=== PATIENT | female | born 1955 | race Caucasian/White ===

== ENCOUNTER → 2016-08-08 | Outpatient (CLI) | payer BC ==
[2016-08-08 15:30] LABS: BASO % 0.4 %; BASO ABS # 0.03 K/uL (0-0.2); COMPLETE YES; EOS % 1.6 %; HEMATOCRIT 42.3 % (37-47); IG% 0.1 %; LYMPH % 39.7 %; LYMPH ABS # 2.77 K/uL (1.2-3.4); MEAN CELL VOLUME 94.2 fL (80-100); MEAN CORPUSCULAR HGB CONC 32.9 g/dl (32-36); MEAN PLATELET VOLUME 10.5 fL (7.4-10.4); MONO % 7.7 %; NEUT % 50.5 %; PLATELET COUNT 258 K/uL (130-400); RED BLOOD COUNT 4.49 M/uL (4.2-5.4); WHITE BLOOD COUNT 6.98 K/uL (4.8-10.8)
[2016-08-08 15:42] LABS: ALT/SGPT 18 U/L (12-78); AST/SGOT 21 U/L (15-37); BLOOD UREA NITROGEN 11 mg/dl (7-18); BUN/CREATININE RATIO 9.6 (10-20); CALCIUM 8.3 mg/dl (8.5-10.1); CARBON DIOXIDE 26 mmol/L (21-32); CHLORIDE 104 mmol/L (98-107); GLUCOSE 107 mg/dl (70-99); SODIUM 140 mmol/L (136-145)
[2016-08-08 15:52] LABS: ALKALINE PHOSPHATASE 94 U/L (45-117); CHOLESTEROL 219 mg/dl (0-200); CHOLESTEROL/HDL RATIO 5.5; HDL CHOLESTEROL 40 mg/dl; LDL CHOLESTEROL CALCULATED 138 mg/dl; TRIGLYCERIDES 204 mg/dl (0-150); VERY LOW DENSITY LIPOPROT CALC 41 mg/dl
[2016-08-08 15:58] LABS: RATIO 5.1 mcg/mg (0-30.0)
[2016-08-09 06:06] LABS: ESTIMATED AVERAGE GLUCOSE 140 mg/dl; HA1C FLAG Normal (Normal)
== END | disposition home or self-care (01) ==
LOC: C.LAB1850 14:23
PROVIDERS: ATTEND Internal Medicine
DX: E11.9 Type 2 diabetes mellitus without complications (principal); E03.9 Hypothyroidism, unspecified; I42.9 Cardiomyopathy, unspecified; E55.9 Vitamin D deficiency, unspecified; E53.8 Deficiency of other specified B group vitamins; I65.29 Occlusion and stenosis of unspecified carotid artery

== ENCOUNTER → 2017-06-01 | Outpatient (CLI) | payer BC ==
[2017-06-01 09:49] LABS: ALT/SGPT 24 U/L (12-78); AST/SGOT 19 U/L (15-37); BLOOD UREA NITROGEN 9 mg/dl (7-18); BUN/CREATININE RATIO 9.9 (10-20); CALCIUM 8.6 mg/dl (8.5-10.1); CARBON DIOXIDE 26 mmol/L (21-32); CHLORIDE 105 mmol/L (98-107); CREATININE 0.96 mg/dl (0.60-1.20); GLUCOSE 137 mg/dl (70-99); SODIUM 135 mmol/L (136-145)
[2017-06-01 09:59] LABS: ESTIMATED AVERAGE GLUCOSE 146 mg/dl; HA1C FLAG Normal (Normal)
[2017-06-01 10:03] LABS: CHOLESTEROL 120 mg/dl (0-200); CHOLESTEROL/HDL RATIO 2.7; HDL CHOLESTEROL 44 mg/dl; LDL CHOLESTEROL CALCULATED 59 mg/dl; TRIGLYCERIDES 84 mg/dl (0-150); VERY LOW DENSITY LIPOPROT CALC 17 mg/dl
== END | disposition home or self-care (01) ==
LOC: C.LAB1850 07:08
PROVIDERS: ATTEND Internal Medicine
DX: E78.5 Hyperlipidemia, unspecified (principal); E03.9 Hypothyroidism, unspecified; E53.8 Deficiency of other specified B group vitamins; E11.9 Type 2 diabetes mellitus without complications

== ENCOUNTER 2017-09-11 18:43 | Emergency (ER) | payer BC, OTHER ==
[~2017-09-11] VITALS: Ht 160 cm; Wt 77.7 kg
[2017-09-11 18:48] VITALS: TEMP 36.8; Ht 160 cm; Wt 77.7 kg
--- NOTE | 2017-09-11 19:25 | EMERGENCY ROOM VISIT NOTE ---
History Report prepared by Gina: Héctor Ratliff Under the Supervision of: Dr. Angelito Umaña M.D. First contact with patient: 18:52 Chief Complaint: HEADACHE Stated Complaint: PAIN IN HEAD VISION,HAD BLOOD CLOT BEFORE FEELS TH History of Present Illness The patient is a 62 year old white female with a past medical history of blood clots and DM who presents to the ED with a cc of an intermittent headache beginning today. The patient states that she has been hearing "whooshing sounds in my head" in both ears. She reports the last time she experienced this was when she had a blood clot in her head. The patient states that today she experienced a headache that "felt like an electric probe shocking the right lower side of my head through the left side of my head". She states that this sensation comes and goes every couple of minutes. Positive "whooshing sound". Negative Deficits, recent falls, injury. Source of History: patient Onset: today Position: head Quality: other ("electric probe shocking") Timing: intermittent Note: Positive "whooshing sound". Negative Deficits, recent falls, injury. Review of Systems See HPI for pertinent positives and negatives. A total of ten systems were reviewed and were otherwise negative. Past Medical & Surgical Medical Problems: (1) Blood clots in brain (2) Diabetes Family History Cancer Diabetes mellitus Heart disease Hypertension Social History Smoking Status: Former Smoker Occupation Status: retired Current/Historical Medications Scheduled Aspirin (Aspirin Ec), 81 MG PO DAILY Atorvastatin (Lipitor), 10 MG PO DAILY Cyanocobalamin (Vitamin B-12), 1 TAB PO WK Fluoxetine (Prozac), 40 MG PO DAILY Levothyroxine Sodium (Synthroid), 150 MCG PO DAILY Sacubitril-Valsartan (Entresto 49-51 mg), 1 TAB PO BID Scheduled PRN [Ambein], 10 MG PO HS PRN for Sleep Allergies Coded Allergies: ALLERGY2 (Unverified Allergy, Unknown, 09/11/17) Fluvastatin (Unverified Allergy, Unknown, UNKNOWN, 09/11/17) Physical Exam Vital Signs Date Time Temp Pulse Resp B/P (MAP) Pulse Ox O2 Delivery O2 Flow Rate FiO2 09/11/17 20:45 86 16 130/64 96 Room Air 09/11/17 18:48 36.8 86 20 149/67 97 Room Air Physical Exam GENERAL: Awake, alert, well-appearing, NAD HENT: Normocephalic, atraumatic. EYES: Normal conjunctiva. Sclera non-icteric. NECK: Supple. No nuchal rigidity. FROM. RESPIRATORY: CTAB, no rhonchi, wheezing, crackles CARDIAC: RRR, no MRG ABDOMEN: Soft, NTND, BS+ MSK: No chest wall TTP, no LE edema, No bruits, No reproducible head or neck pain. NEURO: CN 2-12 intact, 5/5 upper and lower extremity strength, no dysmetria, no drift, good finger to nose, no sensory deficits. Finger count grossly normal. PERRL. SKIN: No rash or jaundice noted. Medical Decision & Procedures ER Provider Diagnostic Interpretation: Radiology results as stated below per my review and radiologist interpretation: HEAD CT NONCONTRAST CT DOSE: 927.37 mGy.cm HISTORY: prior h/o of embolic stroke, posterior occipital discomfort TECHNIQUE: Multiaxial CT images of the head were performed without the use of intravenous contrast. Automated exposure control was utilized for this study. A dose lowering technique was utilized adhering to the principles of ALARA. Comparison: Brain MRI 06/29/2014. Findings: The paranasal sinuses and mastoid air cells are clear. The calvarium and skull base are intact. The ventricles and sulci are within normal limits. There is no mass, hematoma, midline shift, or acute infarct. Impression: No acute intracranial abnormality. Electronically signed by: Dwayne Huston M.D. 09/11/2017 7:27 PM Dictated Date/Time: 09/11/2017 7:[address] DOSE: HISTORY: neck pain R sided that extends to L side of parietal area TECHNIQUE: Multiaxial CT images of the cervical spine were performed and reformatted in the sagittal and coronal plane without the use of contrast. A dose lowering technique was utilized adhering to the principles of ALARA. COMPARISON: None. FINDINGS: No fractures. No subluxation. Prevertebral soft tissues and the C1-C2 interval are intact. No pneumothorax. IMPRESSION: No fractures within the cervical spine. Electronically signed by: Dwayne Huston M.D. 09/11/2017 7:34 PM Dictated Date/Time: 09/11/2017 7:29 PM ED Course 1856: The patient was evaluated in room A04B. A complete history and physical exam was performed. 2020: I reevaluated the patient. Discussed results and discharge instructions: She verbalized understanding and agreement. The patient is ready for discharge. Medical Decision Prior records/ancillary studies reviewed. Triage Nursing notes reviewed. The patient is a 62 year old white female with a past medical history of blood clots and DM who presents to the ED with a cc of an intermittent headache beginning today. Differential diagnosis: Etiologies such as migraine headache, meningitis, sinusitis, CO exposure, ICH, SAH, infection, tumor, headache, sinus thrombosis, arterial dissection, as well as others were entertained. Prior records were reviewed. Patient was seen and evaluated the bedside. Patient did describe that she had heard some whooshing type sounds in her ears. Patient also did complain of some intermittent sharp shooting electrical type shock in the occiput which would radiate to the left parietal area. Patient denies any vision changes. Patient denies any numbness tingling or weakness. Patient does take a baby aspirin. Patient does describe that she did have a prior blood clot in the brain but has not had any focal deficits or issues since then. Patient denies any trauma. On exam the patient does not have any reproducible pain and does not describe any current pain. Patient has a nonfocal neurologic exam. Gross vision is intact. Patient did have a CT of the brain CT C-spine completed. No blood work is completed as the patient does not complain of any acute symptoms and did recently just have blood work completed. Patient CT of the brain and C-spine negative acute. I did reassess the patient and told her to try some moist heat and some Tylenol. Patient may have some radicular type discomfort. Patient was told to follow-up with her PCP for further evaluation and treatment at this time. The patient does not have any carotid bruits noted again without any focal neurologic deficits I believe the whooshing in the ears is not diagnostic of anything in particular that would require further workup at this time. Patient was given strict follow-up, discharge, and return precautions. All questions were answered. Patient was deemed suitable for outpatient follow-up at this time. Patient agreed with the plan of care and was safely discharged home. Medication Reconcilliation Current Medication List: was personally reviewed by me Blood Pressure Screening Patient's blood pressure: Elevated blood pressure Blood pressure disposition: Referred to PCP Impression Primary Impression: Headache Scribe Attestation The scribe's documentation has been prepared under my direction and personally reviewed by me in its entirety. I confirm that the note above accurately reflects all work, treatment, procedures, and medical decision making performed by me. Departure Information Dispostion Home / Self-Care Referrals Crow Casanova P.A. (PCP) Nick Murray M.D. Patient Instructions Headache Pain, My [facility] Additional Instructions Please return to the emergency department if you have worsening or recurrent symptoms not amenable to at-home treatment. Please call for a follow-up appointment with her primary care physician. Please take your medications as prescribed. If you have other concerns and/or complaints please feel free to also call your primary care physician's office or return the ED for further evaluation, management, and treatment. You may take tylenol 650 mg every 6 hours as needed for pain. Consider moist heat as well to help with her discomfort. Please make a follow-up appointment with your primary care physician. Take your medications as prescribed. You have been examined and treated today on an emergency basis only. This is not a substitute for, or an effort to provide, complete comprehensive medical care. It is impossible to recognize and treat all injuries or illnesses in a single emergency department visit. It is therefore important that you follow up closely with [facility], your PCP, and/or your specialist(s). Call as soon as possible for an appointment. Thank you for your time and consideration. I look forward to speaking with you again soon. Please don't hesitate to call us if you have any questions. Problem Qualifiers Primary Impression: Headache Headache type: unspecified Headache chronicity pattern: episodic headache Intractability: not intractable Qualified Codes: R51 - Headache
--- NOTE | 2017-09-11 19:28 | DIAGNOSTIC IMAGING REPORT ---
HEAD CT NONCONTRAST CT DOSE: 927.37 mGy.cm HISTORY: prior h/o of embolic stroke, posterior occipital discomfort TECHNIQUE: Multiaxial CT images of the head were performed without the use of intravenous contrast. Automated exposure control was utilized for this study. A dose lowering technique was utilized adhering to the principles of ALARA. Comparison: Brain MRI 06/29/2014. Findings: The paranasal sinuses and mastoid air cells are clear. The calvarium and skull base are intact. The ventricles and sulci are within normal limits. There is no mass, hematoma, midline shift, or acute infarct. Impression: No acute intracranial abnormality. Electronically signed by: Dwayne Huston M.D. 09/11/2017 7:27 PM Dictated Date/Time: 09/11/2017 7:21 PM
--- NOTE | 2017-09-11 19:35 | DIAGNOSTIC IMAGING REPORT ---
CERVICAL SPINE CT CT DOSE: HISTORY: neck pain R sided that extends to L side of parietal area TECHNIQUE: Multiaxial CT images of the cervical spine were performed and reformatted in the sagittal and coronal plane without the use of contrast. A dose lowering technique was utilized adhering to the principles of ALARA. COMPARISON: None. FINDINGS: No fractures. No subluxation. Prevertebral soft tissues and the C1-C2 interval are intact. No pneumothorax. IMPRESSION: No fractures within the cervical spine. Electronically signed by: Dwayne Huston M.D. 09/11/2017 7:34 PM Dictated Date/Time: 09/11/2017 7:29 PM
[2017-09-11] MEDS ORDERED: LEVO150T PO (19:41)
[2017-09-11] MEDS ORDERED: ATOR10TA82 PO (19:41)
[2017-09-11] MEDS ORDERED: ASPI81TA28 PO (19:41)
[2017-09-11] MEDS ORDERED: SACU1TAB7 PO (19:41)
[2017-09-11] MEDS ORDERED: FLUO20CA35 PO (19:41)
[2017-09-11] MEDS ORDERED: CYAN100T PO (19:46)
[2017-09-11] MEDS ORDERED: [UNRECOGNIZED DRUG - OTHER] PO (19:46)
[2017-09-11 20:45] VITALS: BP 130/64; PULSE 86; O2SAT 96
== END 2017-09-11 20:59 | disposition home or self-care (01) ==
LOC: C.EDB 18:46 → C.EDA 20:59
DX: R51 Headache (principal); Z86.718 Personal history of other venous thrombosis and embolism; E11.9 Type 2 diabetes mellitus without complications; Z80.9 Family history of malignant neoplasm, unspecified; Z83.3 Family history of diabetes mellitus; Z82.49 Family history of ischemic heart disease and other diseases of the circulatory system; Z87.891 Personal history of nicotine dependence; Z79.82 Long term (current) use of aspirin; Z79.899 Other long term (current) drug therapy; Z88.8 Allergy status to other drugs, medicaments and biological substances

== ENCOUNTER 2019-08-14 05:03 | Inpatient (IN) ==
--- NOTE | 2019-08-12 11:56 | Anesthesiology Consultation ---
Date of Service August 12, 2019 Assessment & Plan (1) Encounter for pre-operative examination: CHECK BSG AM DOS Cardiology 07/24/19: "Patient remains stable from a cardiac standpoint. She is able to perform her usual activities daily living without limiting cardiop ulmonary symptoms otherwise." [negative stress echo 06/17/19] Cardiology aware of upcoming CEA (Kip Edilberto placed referral to [facility]). Case discussed with Dr. Barros. OK to proceed, but will require discussion with patient AM DOS regarding her increased risk given she has refused AICD placement with EF of 25% Chart Review Chart Review: Acceptable Risk for Surgery and Patient NOT seen in Pre Admission Testing History Surgery Operation Date: 08/14/19 07:00 Proposed Procedures p Right Carotid Endarterectomy with Patch Angioplasty - Vance Walter MD Height/Weight Height: 5 ft 4 in Weight: 77.111 kg Allergies Allergy/AdvReac Type Severity Reaction Status Date / Time surgical ritu Allergy Unknown Uncoded 08/12/19 09:02 Medications Home Medications Medication Instructions Recorded Confirmed Last Taken blood sugar diagnostic #100 ea 03/26/19 08/04/19 Unknown blood-glucose meter #1 ea 03/26/19 08/04/19 Unknown metformin 500 mg tablet 500 mg PO QAM tab 05/29/19 08/12/19 Unknown aspirin 325 mg tablet 325 mg PO QAM 07/30/19 08/12/19 Unknown atorvastatin 10 mg PO QAM 08/12/19 08/12/19 Unknown fluoxetine 60 mg PO PM 08/12/19 08/12/19 Unknown levothyroxine 137 mcg PO QAM 08/12/19 08/12/19 Unknown sacubitril-valsartan [Entresto] 1 tab PO BID 08/12/19 08/12/19 Unknown zolpidem [Ambien] 10 mg PO HS 08/12/19 08/12/19 Unknown Past Medical History Medical History Anxiety Carotid artery stenosis CVA (cerebral vascular accident) (Resolved) vs TIA 04/17/2019 - [facility] - poor historian - reports physician wanted to put her on Plavix but she refused. Depression Diabetes mellitus, type 2 NIDDM History of anesthesia reaction "I coded during my tubal ligation." 30+ years ago - says she is very sensistive to anesthesia, she was told to tell anesthesia that she doesn't need much Hypoglycemia "I drop into the 40s-50s every day" - says she keeps glucose tablets on her at all times. - instructed pt to notify PCP as she is on metformin Non-ischemic cardiomyopathy EF 25% on stress echo 06/17/19. Has chronically refused AICD placement Poor historian Sleep apnea s/p gastric bypass, no longer using CPAP since wt loss TIA (transient ischemic attack) 20 years ago Past Family History Family History Brother Alcoholism Mother Diabetes Father Prostate cancer Sister Breast cancer Slow to wake up after anesthesia Past Surgical History Surgical History History of cardiac cath 10 years ago - CP - [facility] - no stents 15 years ago - [facility] - no stents History of cholecystectomy History of esophagogastroduodenoscopy (EGD) History of tooth extraction History of tubal ligation S/P gastric bypass Past Anesthesia History "I coded during my tubal ligation." 30+ years ago - says she is very sensitive to anesthesia, she was told to tell anesthesia that she doesn't need much. No anesthesia records available, no records at [facility]. Social History Smoking Status: Former smoker tobacco type: cigarettes Do You Dip or Chew Tobacco: No Smoking End Date: 30 years ago Hx Alcohol Use: No Hx Substance Use: No Testing Laboratory Results 08/04/19 WBC: 6.22 H/H: 12.7/39.7 PLATELETS: 257 SODIUM: 140 POTASSIUM: 4.4 CHLORIDE: 109 CO2: 28 BUN: 13 CREATININE: 0.97 GLUCOSE: 103 Electrocardiogram Date: 04/19/19 Findings: + NSR @ (78bpm) Left anterior fascicular block. Low voltage in precordial leads. Abnormal R wave progression, early transition. Prolonged QT interval. Baseline wander in lead V5. Chest X-Ray Date: 04/18/19 Findings: + NAD Echocardiogram Date: 04/19/19 EF: 25-30% Moderately dilated LV with segmental abnormalities as described above and severely decreased systolic function. Normal RV size and function. Mild mitral regurgitation. Sinotubular junction measures 2.1 cm. There is an impaired relaxation pattern consistent with diastolic dysfunction grade 1. Stress Test Date: 06/17/19 Type: exercise Resting EF: 25% Negative exercise stress echocardiogram for ischemia at 94% MPHR. Resting echocardiogram with severe LV systolic dysfunction. Moderate LV dilatation. Mild left atrial dilatation. Mild mitral regurgitation. Trace to mild tricuspid regurgitation. Normal estimated RVSP. Compared to a resting echocardiogram of 02/12/2018, there has been no significant interval change in the resting LV systolic function.
[2019-08-14] MEDS ORDERED: LR 15ML/HR IV SCH (06:00)
--- NOTE | 2019-08-14 06:13 | History & Physical Bridge Note ---
Date of Service August 14, 2019 History & Physical Bridge Note I have examined the patient, reviewed the History & Physical and in the interval since the performance of the History & Physical I have noted the following changes of clinical significance: no changes noted pt marked all questions answered family to be here later we are starting at carola 8 am today because of monthly QI meeting scheduled for 6:30 am
[2019-08-14] MEDS ORDERED: LIDOCAINE HCL 2% 2 ML VIAL/AMP(20MG/ML) INFIL ONE (06:39)
[2019-08-14] MEDS ORDERED: ONDANSETRON INJ 2 MG/ML 2 ML VIAL ONE (06:39)
[2019-08-14] MEDS ORDERED: PROPOFOL IV EMULSION 10 MG/ML 20 ML VIAL IV ONE (06:39)
[2019-08-14] MEDS ORDERED: fentaNYL citrate 100 MCG/2 ML VIAL ONE ×2 (06:40→07:19)
[2019-08-14] MEDS ORDERED: MIDAZOLAM HCL 1 MG/ML 2ML VIAL ONE ×2 (06:40→07:25)
[2019-08-14] MEDS ORDERED: LIDOCAINE/EPINEPHRINE 1% 20 ML VIAL ONE (06:43)
[2019-08-14] MEDS ORDERED: BACITRACIN INJ 50,000 UNIT VIAL ONE (06:43)
[2019-08-14] MEDS ORDERED: HEPARIN (PORCINE) 1000 UNIT/ML 10 ML (CATH LAB USE ONLY) ONE (06:43)
[2019-08-14] MEDS ORDERED: NITROGLYCERIN 5 MG/ML 10 ML VIAL ONE (07:12)
[2019-08-14] MEDS ORDERED: ePHEDrine sulfate 50 MG/ML AMP IV PRN (07:56)
[2019-08-14] MEDS ORDERED: fentaNYL citrate 100 MCG/2 ML VIAL IV PRN (07:56)
[2019-08-14] MEDS ORDERED: PROMETHAZINE HCL 12.5 MG in SODIUM CHLORIDE 0.9% 50 ML IV PRN (07:56)
[2019-08-14] MEDS ORDERED: HYDROmorphone INJ 2 MG/ML SYR/VIAL IV PRN (07:56)
[2019-08-14] MEDS ORDERED: ATROPINE SULFATE 0.1 MG/ML 10ML SYR IV PRN (07:56)
[2019-08-14] MEDS ORDERED: ONDANSETRON INJ 2 MG/ML 2 ML VIAL IV PRN ×2 (07:56→11:40)
[2019-08-14] MEDS ORDERED: ETOMIDATE 2 MG/ML 20 ML VIAL IV ONE (08:37)
[2019-08-14] MEDS ORDERED: PHENYLEPHRINE HCL 10 MG/ML VIAL ONE (08:37)
[2019-08-14] MEDS ORDERED: CEFAZOLIN 250 MG/ML 1 GM VIAL ONE (08:42)
[2019-08-14] MEDS ORDERED: NEOSTIGMINE METHYLSULFATE 5 MG/5 ML SYR ONE (09:20)
[2019-08-14] MEDS ORDERED: GLYCOPYRROLATE 0.2 MG/ML VIAL ONE (09:20)
[2019-08-14] MEDS ORDERED: SURGICEL ABSORB HEMOSTAT 2IN X 14IN TOP ONE (09:52)
[2019-08-14] MEDS ORDERED: CEFAZOLIN 2000MG 2,000 MG/15 ML SYR IV ONE (09:55)
--- NOTE | 2019-08-14 10:13 | Post Operative Brief Note ---
PG Immediate Post Op with CF Date of Surgery August 14, 2019 Pre & Post Diagnosis Operation Date: 08/14/19 08:00 Pre-Op Diagnosis: Right Carotid Stenosis Post-Op Diagnosis: Right Carotid Stenosis I identified the patient and participated in the time-out.: Yes Procedure Operation Date: 08/14/19 08:00 Actual Procedures p Right Carotid Endarterectomy with Bovine Patch Angioplasty(Right) - Vance Walter MD Surgeon Vance Walter MD Dust Box Worker B PIEDAD COULTER Estimated Blood Loss 50 Findings Consistent with Post-Op Diagnosis Specimens Specimen Description: Permanent Specimen A: Right Internal Jugular Node
--- NOTE | 2019-08-14 10:36 | Operative Report ---
PG Post Operative Report Pre & Post Diagnosis Operation Date: 08/14/19 08:00 Pre-Op Diagnosis: Right Carotid Stenosis Post-Op Diagnosis: Right Carotid Stenosis I identified the patient and participated in the time-out.: Yes Procedure Operation Date: 08/14/19 08:00 Actual Procedures p Right Carotid Endarterectomy with Bovine Patch Angioplasty(Right) - Vance Walter MD The patient was brought into the operating room theater general trach anesthesia supine position roll placed between her shoulder blades neck and upper chest on the right was prepped Betadine solution and scrub and properly draped systemic antibiotics given a timeout was had patient was identified 1% Xylocaine with epi was used to infiltrate anterior to the sternocleidal muscle on the right and incision was made approximately 3 inches long deepened through subcutaneous tissue dissection was carried out by retracting sternocleido laterally and went onto the neurovascular bundle the facial vein was identified divided and doubly ligated took our dissection up towards the distal aspect of the incision for incision mandible we identified a lymph node anterior jugular vein there was in the way of our dissection and we removed that ligating circumferentially around with 2-0 silk our attention was turned we identified the common carotid dissected free took her dissection to identify the superior thyroid which was Emmanuel with 2-0 silk the internal carotid flap was dissected out to we are able to identify the hypoglossal nerve and actually we dissected that placed through vessel loop along with the Ansong. A few small veins around the area with meticulous divided and ligated. Once we had vessel loop around the common and the external carotid with these were loosely held in place we divided the suspensory ligament doubly ligated with 2-0 silk prior to that we looked local anesthetic to infiltrate the carotid bifurcation patient for carotid body the internal carotid was taken up to a point that we felt were free of any disease we then placed a vessel loop around the area. Once we had felt that we had enough mobilization at this point we gave 8000 units of heparin waited approximately 5 minutes meantime a piece of bovine patch was brought up on the field cut it appropriately we will use it as a patch after 5 minutes we clamped the internal carotid first with a bulldog clamp then the external and the common arteriotomy was made in the common carotid taken out towards the internal carotid area which was significant disease could not find the lumen with the Eckert scissors but we were able to divided and went up into the distal aspect of the plaque were tapered off without very nicely we started her line of endarterectomy on the circular fibers in the common carotid to get up is 305 0 silk suture stay sutures and went on and did an internal endarterectomy inversion endarterectomy of the external carotid then continued up to the internal carotid where the plaque appeared to be tapered nicely. We released the bulldog clamp the patient had very good backbleeding. We meticulous dissected out the endarterectomy site freeing up of any debris especially towards the internal carotid area where the patch was adherent after we freed up a few small fibers. We flushed the common carotid and external. Patch was then brought up in the field and used 6-0 Prolene to put with the plaster is starting at the toe with a parachute method. Prior to closing the patch down we placed a #3 bakes dilator onto the internal carotid area with excellent backbleeding the LV on the patch we held back bleeding controlled with Kiley forceps then we flushed the external and common suctioned out the endarterectomy site and then tied down the patch. The external carotid clamp was taken off first there was a small bleeder appreciated near the takeoff of the internal/external carotid which were oversewn with 6-0 Prolene the rest appear to be satisfactory we then released the common carotid clamp and flow was reestablished to the operative field very little bleeding appreciated at last we took the DeBakey off the internal carotid. A pack was placed in the area with good seal and no thrill beyond the toe of the graft therefore at this point we then used a to reverse the heparin with 40 mg of protamine after ligating approximately 5 minutes there was virtually no bleeding in the operative field and on the patch site. I did place a piece of Surgicel just momentarily but there was obviously no bleeding. At this point a small opening was made between the 2 heads it is sternocleidal from the skin incision and I placed 1/4 inch Natalio down along the operative field touches skin edge with 2-0 silk suture the wound was closed multiple layer using 3-0 and 2-0 Vicryl approximating some tissue on top of the carotid and top of the drain and a platysma we then used 4-0 Monocryl to approximate the skin edges since the patient has some sensitivity and issues with ritu dressing was applied neurologically the patient was completely intact at the end of procedure she was extubated without any issues. AddendAlejandra coulter present throughout the procedure and help with retraction exposure and closure Surgeon Vance Walter MD Product Test Specialist B PIEDAD COULTER Estimated Blood Loss 50 Findings Consistent with Post-Op Diagnosis Specimens plaque and lymph node Description of Procedure merda I attest to the content of the Intraoperative Record and any orders documented therein. Any exceptions are noted below.
--- NOTE | 2019-08-14 11:01 | Anesthesiology Progress Note ---
Date of Service August 14, 2019 Anesthesia Post Procedure Vital Signs Vital Signs: Temp Pulse Pulse Resp BP BP Pulse Ox 08/14/19 10:55 36.6 C 81 16 132/59 L 99 08/14/19 10:45 75 16 134/61 99 08/14/19 10:35 74 16 153/62 H 100 08/14/19 10:25 76 16 159/63 H 100 08/14/19 10:19 36.2 C L 78 16 136/79 100 08/14/19 05:46 36.7 C 90 20 139/78 98 Transfer of Care Handoff Completed per policy Notes Mental Status: alert / awake / arousable and participated in evaluation Patient Amnestic to Procedure: Yes Nausea / Vomiting: adequately controlled Pain: adequately controlled Airway Patency, RR, SpO2: stable & adequate BP & HR: stable & adequate Hydration State: stable & adequate Anesthetic Complications: no major complications apparent and Pt Satisfied with anesthetic care
[2019-08-14] MEDS ORDERED: DEXTROSE 50% 50 ML SYRINGE IV PRN (11:40)
[2019-08-14] MEDS ORDERED: CARBOHYDRATES FOR HYPOGLYCEMIA PO PRN (11:40)
[2019-08-14] MEDS ORDERED: GLUCOSE 40% GEL 15 GM TUBE PO PRN (11:40)
[2019-08-14] MEDS ORDERED: GLUCOSE 10 TABS/TUBE PO PRN (11:40)
[2019-08-14] MEDS ORDERED: GLUCAGON FOR INJ 1 MG VIAL SQ PRN (11:40)
[2019-08-14] MEDS ORDERED: MoRPHine SULFATE 4 MG/ML 1 ML CARP\\VIAL IV PRN (11:40)
[2019-08-14] MEDS: OXYCODONE/ACETAMINOPHEN 5mg/325mg TAB PO PRN ×2 (12:05→16:05)
[2019-08-14] MEDS: SODIUM CHLORIDE 0.9% 1000ML 1,000 ML IV SCH (12:05)
--- NOTE | 2019-08-14 12:18 | Critical Care Consultation ---
Date of Consultation August 14, 2019 Assessment & Plan (1) Encounter for pre-operative examination: Impression: 64-year-old female status post carotid endarterectomy. Recommendations: 1. Status post right carotid endarterectomy: Management per general/vascular surgery. 2. Hypertension: Defer blood pressure goals to vascular/general surgery. 3. History of cardiomyopathy: Echo from 2018 showed an ejection fraction of 20 to 25% with global hypokinesis and grade 1 diastolic dysfunction. Moderate left ear with trivial AI was noted. She appears euvolemic currently. Would follow clinically at this point time. Continue outpatient medications. 4. Hypothyroidism: Continue outpatient medications 5. Hyperlipidemia: Continue lipid-lowering therapy 7. Depression: Continue outpatient antidepressants Additional critical care issues been well addressed by the surgical service p ostoperatively. We are available to assist with management of this patient as needed. (2) Arteriosclerosis of carotid artery: (3) Carotid artery stenosis: History of Present Illness Attending Physician: Vance Walter MD History of Present Illness Asked by Dr. Walter to assist in critical care management with this patient status post carotid endarterectomy. Patient seen and examined. EMR reviewed. Patient is a 64-year-old female found to have an asymptomatic 75% stenosis of the right carotid artery. She was seen in consultation felt to be a good candidate for carotid endarterectomy. She was taken to the OR today where the above surgery was performed. She is brought back to the ICU extubated and hemodynamically stable. She is complaining of some slight neck pain but overall feels well. No neurological symptoms. Allergies Allergy/AdvReac Type Severity Reaction Status Date / Time surgical ritu Allergy Unknown Uncoded 08/14/19 05:43 Home Medications Home Medications Medication Instructions Recorded Confirmed Type blood sugar diagnostic #100 ea 03/26/19 08/04/19 Rx blood-glucose meter #1 ea 03/26/19 08/04/19 Rx metformin 500 mg tablet 500 mg PO QAM tab 05/29/19 08/14/19 History aspirin 325 mg tablet 325 mg PO QAM 07/30/19 08/14/19 History atorvastatin 10 mg PO QAM 08/12/19 08/14/19 History fluoxetine 60 mg PO PM 08/12/19 08/14/19 History levothyroxine 137 mcg PO QAM 08/12/19 08/14/19 History sacubitril-valsartan [Entresto] 1 tab PO BID 08/12/19 08/14/19 History zolpidem [Ambien] 10 mg PO HS 08/12/19 08/14/19 History oxycodone-acetaminophen [Percocet] 1 - 2 tab PO .q4-6h PRN #15 tab 08/14/19 Rx Patient History Medical History Anxiety Carotid artery stenosis CVA (cerebral vascular accident) (Resolved) vs TIA 04/17/2019 - Chanell Kirkland - poor historian - reports physician wanted to put her on Plavix but she refused. Depression Diabetes mellitus, type 2 NIDDM History of anesthesia reaction "I coded during my tubal ligation." 30+ years ago - says she is very sensistive to anesthesia, she was told to tell anesthesia that she doesn't need much Hypoglycemia "I drop into the 40s-50s every day" - says she keeps glucose tablets on her at all times. - instructed pt to notify PCP as she is on metformin Non-ischemic cardiomyopathy EF 25% on stress echo 06/17/19. Has chronically refused AICD placement Poor historian Sleep apnea s/p gastric bypass, no longer using CPAP since wt loss TIA (transient ischemic attack) 20 years ago Surgical History History of cardiac cath 10 years ago - CP - [facility] - no stents 15 years ago - [facility] - no stents History of cholecystectomy History of esophagogastroduodenoscopy (EGD) History of tooth extraction History of tubal ligation S/P gastric bypass Family History Brother Alcoholism Mother Diabetes Father Prostate cancer Sister Breast cancer Slow to wake up after anesthesia Social History Preferred Language: Bhutanese Communication Ability: Effective Visual Impairment: No Limitations Hearing Ability: Normal Pony Edger Required: No Beliefs That Will Affect Care: None marital status: Current Living Situation: Spouse current occupational status: employed 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 Other Information That Helps Us Care for You: No Feels Safe at Home: Yes Safety Concerns: Feels Safe At This Time Smoking Status: Former smoker Tobacco Type: cigarettes ; Do You Dip or Chew Tobacco: No ; Smoking End Date: 30 years ago ; Number of Years Since Quit: 18 ; Second Hand Exposure: Yes (previous exposure in the workplace) ; Tobacco Cessation Education Requested by Patient: No Hx Alcohol Use: No Hx Substance Use: No Review of Systems Review of Systems: See HPI no changes Physical Exam Constitutional: WD/WN, vitals as above Neck: trachea midline, no thyromegaly Respiratory: normal respiratory effort, lungs clear to auscultation Cardiovascular: RRR, no murmur, no edema Gastrointestinal (Abdomen): normal bowel sounds, soft, nontender, no hepatosplenomegaly Musculoskeletal: Extremities: extremities normal to inspection Skin: no rashes, warm and dry Neurologic: Nonfocal exam Lymphatic: no cervical lymphadenopathy Results & Data ([facility]) Vital Signs (Past 12 Hours) Vital Signs Temp Pulse Pulse Resp BP BP Pulse Ox 08/14/19 11:40 36.7 C 78 18 140/62 143/74 H 96 08/14/19 11:05 36.6 C 81 16 134/58 L 99 08/14/19 10:55 36.6 C 81 16 132/59 L 99 08/14/19 10:45 75 16 134/61 99 08/14/19 10:35 74 16 153/62 H 100 08/14/19 10:25 76 16 159/63 H 100 08/14/19 10:19 36.2 C L 78 16 136/79 100 08/14/19 05:46 36.7 C 90 20 139/78 98 Diagnostic Findings No current imaging Coding Level of Care Code 73590 Inpt Consult Level 3 Diagnoses Encounter for pre-operative examination Z01.818 Arteriosclerosis of carotid artery I65.29 Carotid artery stenosis I65.29
[2019-08-14] MEDS: INSULIN ASPART 100 UNITS/ML 3 ML PEN SC SCH ×3 (12:47→20:51)
--- NOTE | 2019-08-14 13:09 | Anesthesiology Progress Note ---
Date of Service August 14, 2019 Subjective pt was recieved in ICU where she immediately started to complain of left eye pain. A foreign body sensation. Pt eyes were taped securely during procedure and no complaints in PACU. On physical inspection, pt having difficult keeping eye open. Pt able to move eye in all directions. Some redness on lateral side. Pt has tried artificial tears without effect. Given the recent surgery, a corneal abrasion during the post operative period has to be considered. Generally, will heal on their own. Given that she is in a hospital and in pain, i will place ketoralac eye drops and abx eye drops in for three days. Will reevaluate tomorrow. Physical Exam Vital Signs: Last Vital Signs Temp 36.7 C 08/14/19 11:40 Pulse 78 08/14/19 11:40 Resp 18 08/14/19 11:40 BP 143/74 H 08/14/19 11:40 Pulse Ox 96 08/14/19 11:40 Results & Data Medications Administered Sodium Chloride (Nss 1000ml) 1,000 mls @ 80 mls/hr IV .[id number] [facility] Stop: 09/13/19 11:39 Last Admin: 08/14/19 12:05 Dose: 80 mls/hr Documented by: [id number] Oxycodone/Acetaminophen (Percocet 5mg/325mg) 1 - 2 tab PO Q4H PRN PRN Reason: Moderate Pain Stop: 08/28/19 11:39 Last Admin: 08/14/19 12:05 Dose: 1 tab Documented by: [id number]
[2019-08-14] MEDS: TRIMETHOPRIM/POLYMYXIN B OP SCH ×2 (13:42→16:06)
[2019-08-14] MEDS: NITROGLYCERIN/D5W 100MCG/ML 250 ML IV SCH (14:42)
[2019-08-14] MEDS: KETOROLAC 0.5% OP SOLN 5 ML BTL OP SCH ×2 (18:03→20:51)
[2019-08-14] MEDS: SACUBITRIL-VALSARTAN 49/51 MG TAB PO SCH (20:50)
[2019-08-14] MEDS ORDERED: FLUOXETINE HCL 20 MG CAP PO SCH (21:00)
[2019-08-14] MEDS ORDERED: ZOLPIDEM TARTRATE 10 MG TAB PO SCH (21:00)
[2019-08-14] MEDS ORDERED: KETOROLAC LS 0.4% OP SOLN 5 ML BTL OP SCH (21:00)
[2019-08-14] MEDS: ACETAMINOPHEN 500 MG TAB PO PRN (21:14)
[2019-08-15] MEDS: SODIUM CHLORIDE 0.9% 1000ML 1,000 ML IV SCH (00:16)
[2019-08-15] MEDS: OXYCODONE/ACETAMINOPHEN 5mg/325mg TAB PO PRN ×3 (02:50→15:22)
[2019-08-15] MEDS: ACETAMINOPHEN 500 MG TAB PO PRN (03:34)
[2019-08-15 04:38] LABS: Basophils # (auto) 0.01 K/uL (0-0.2); Basophils % (auto) 0.2 %; Eosinophils # (auto) 0.12 K/uL (0-0.5); Eosinophils % (auto) 2.4 %; Hematocrit (blood only) 33.5 % (37-47); Hemoglobin 10.9 g/dL (12.0-16.0); Lymphocytes # (auto) 1.43 K/uL (1.2-3.4); Lymphocytes % (auto) 28.9 %; Mean Corpuscular Hgb Conc 32.5 g/dL (32-36); Mean Corpuscular Volume 95.2 fL (80-100); Mean Platelet Volume 9.5 fL (7.4-10.4); Monocytes # (auto) 0.56 K/uL (0.11-0.59); Monocytes % (auto) 11.3 %; Neutrophils # (auto) 2.83 K/uL (1.4-6.5); Neutrophils % (auto) 57.2 %; Platelet Count 174 K/uL (130-400); RDW Coefficient of Variation 13.4 % (11.5-14.5); RDW Standard Deviation 46.4 fL (36.4-46.3); Red Blood Count 3.52 M/uL (4.2-5.4); White Blood Count 4.95 K/uL (4.8-10.8)
[2019-08-15 04:58] LABS: BUN Creatinine Ratio 12.3 (10-20); Calcium 7.9 mg/dl (8.5-10.1); Creatinine Clr Calc Pharmacy 72.2 ml/min; Est GFR (African American) 91.8; Est GFR (Non-African American) 79.2; Magnesium 1.9 mg/dl (1.8-2.4); Phosphorus 4.1 mg/dl (2.5-4.9); Potassium 3.7 mmol/L (3.5-5.1)
[2019-08-15] MEDS ORDERED: LEVOTHYROXINE SODIUM 137 MCG TABLET PO SCH (06:30)
--- NOTE | 2019-08-15 06:37 | Surgery Progress Note ---
Date of Service August 15, 2019 Assessment & Plan (1) Carotid artery stenosis: Will DC IV fluids DC the arterial line increase her diet slowly reevaluate later today and possibly discharge Told the patient that the neck discomfort was due to the position in the OR with a roll placed underneath her shoulders and should resolve Instructed her to resume all her preoperative medicines As I told her preoperatively no driving for 1 week no lifting anything heavier than 10 pounds she can shower I will see back in the office in 1 week PRN Present on Admission?: Yes Subjective Feels fine no issues voiding fine last evening only complaint is to states her back of her neck hurts Physical Exam Physical Exam: Alert coherent no distress neurologically intact Incision is free of any ecchymosis or any drainage or hematoma minimal drainage through the Natalio site (Natalio was removed) Tongue midline neurologically intact Results & Data Vital Signs (Past 12 Hours) Vital Signs Temp Pulse Resp BP BP Pulse Ox 08/15/19 06:00 65 18 116/41 L 92 08/15/19 04:00 37 C 75 17 101/49 L 120/56 L 94 08/15/19 02:00 75 20 121/44 L 117/53 L 94 08/15/19 00:00 36.8 C 69 18 110/41 L 115/51 L 93 08/14/19 22:00 63 17 118/52 L 92 08/14/19 20:00 36.8 C 64 18 124/44 L 111/64 96 PG Care Time/CCT Total # of Minutes Spent Total Time Spent with Patient: Total time spent is greater than 50% in coordination of care (as documented) at patient's floor/unit and/or counseling patient: Coding Level of Care Code None Diagnoses Carotid artery stenosis I65.29
--- NOTE | 2019-08-15 07:11 | Critical Care Progress Note ---
Date of Service August 15, 2019 Assessment & Plan Admission and Anticipated Discharge Date Admission Date: August 14, 2019 Results & Data ([facility]) Vital Signs (Past 12 Hours) Vital Signs Temp Pulse Resp BP BP Pulse Ox 08/15/19 06:00 65 18 116/41 L 92 08/15/19 04:00 37 C 75 17 101/49 L 120/56 L 94 08/15/19 02:00 75 20 121/44 L 117/53 L 94 08/15/19 00:00 36.8 C 69 18 110/41 L 115/51 L 93 08/14/19 22:00 63 17 118/52 L 92 08/14/19 20:00 36.8 C 64 18 124/44 L 111/64 96 Resident Activity Tracking Resident Involvement: Resident Care Provided Care Provided: Adult Hospital Medicine
--- NOTE | 2019-08-15 07:53 | Anesthesiology Progress Note ---
Date of Service August 15, 2019 Anesthesia Post Procedure Vital Signs Vital Signs: Temp Pulse Pulse Resp BP BP BP 08/15/19 06:00 65 18 116/41 L 08/15/19 04:00 37 C 75 17 101/49 L 120/56 L 08/15/19 02:00 75 20 121/44 L 117/53 L 08/15/19 00:00 36.8 C 69 18 110/41 L 115/51 L 08/14/19 22:00 63 17 118/52 L 08/14/19 20:00 36.8 C 64 18 124/44 L 111/64 08/14/19 18:01 91 H 19 144/79 H 08/14/19 18:00 90 17 08/14/19 17:31 102 H 18 148/60 H 08/14/19 17:01 77 20 126/60 08/14/19 16:02 80 18 08/14/19 16:01 81 18 125/70 08/14/19 16:00 88 12 08/14/19 15:31 75 16 122/58 L 08/14/19 15:01 71 14 128/56 L 08/14/19 14:48 36.8 C 08/14/19 14:33 73 13 08/14/19 14:32 74 17 110/50 L 08/14/19 14:01 70 12 124/52 L 08/14/19 11:40 36.7 C 78 18 140/62 143/74 H 08/14/19 11:05 36.6 C 81 16 134/58 L 08/14/19 10:55 36.6 C 81 16 132/59 L 08/14/19 10:45 75 16 134/61 08/14/19 10:35 74 16 153/62 H 08/14/19 10:25 76 16 159/63 H 08/14/19 10:19 36.2 C L 78 16 136/79 Pulse Ox 08/15/19 06:00 92 08/15/19 04:00 94 08/15/19 02:00 94 08/15/19 00:00 93 08/14/19 22:00 92 08/14/19 20:00 96 08/14/19 18:01 96 08/14/19 18:00 96 08/14/19 17:31 94 08/14/19 17:01 93 08/14/19 16:02 96 08/14/19 16:01 95 08/14/19 16:00 96 08/14/19 15:31 95 08/14/19 15:01 95 08/14/19 14:48 08/14/19 14:33 96 08/14/19 14:32 96 08/14/19 14:01 95 08/14/19 11:40 96 08/14/19 11:05 99 08/14/19 10:55 99 08/14/19 10:45 99 08/14/19 10:35 100 08/14/19 10:25 100 08/14/19 10:19 100 Pain Intensity Right Neck: Pain Intensity: 6 Notes Mental Status: alert / awake / arousable and participated in evaluation Nausea / Vomiting: adequately controlled Pain: adequately controlled Airway Patency, RR, SpO2: stable & adequate BP & HR: stable & adequate Hydration State: stable & adequate Anesthetic Complications: no major complications apparent and Pt Satisfied with anesthetic care
--- NOTE | 2019-08-15 08:18 | Critical Care Progress Note ---
Date of Service August 15, 2019 Assessment & Plan (1) Encounter for pre-operative examination: Impression: 64-year-old female status post carotid endarterectomy. Recommendations: 1. Status post right carotid endarterectomy: Management per general/vascular surgery. 2. Hypertension: Defer blood pressure goals to vascular/general surgery. 3. History of cardiomyopathy: Echo from 2018 showed an ejection fraction of 20 to 25% with global hypokinesis and grade 1 diastolic dysfunction. Moderate LVH with trivial AI was noted. She appears euvolemic currently. Would follow clinically at this point time. Continue outpatient medications. 4. Hypothyroidism: Continue outpatient medications 5. Hyperlipidemia: Continue lipid-lowering therapy 7. Depression: Continue outpatient antidepressants Will sign off when patient leaves ICU. Please contact us if we can be of additional assistance. (2) Arteriosclerosis of carotid artery: (3) Carotid artery stenosis: Subjective Patient seen and examined. No issues overnight. No neurological symptoms. Slight pain at the surgical site but overall doing well. Tolerating a diet. Review of Systems Review of Systems: All systems reviewed & are unremarkable except as noted in HPI & below Physical Exam Constitutional: WD/WN, vitals as above Neck: trachea midline, no thyromegaly Respiratory: normal respiratory effort, lungs clear to auscultation Cardiovascular: RRR, no murmur, no edema Gastrointestinal (Abdomen): normal bowel sounds, soft, nontender, no hepatosplenomegaly Musculoskeletal: Extremities: extremities normal to inspection Skin: no rashes, warm and dry Neurologic: Nonfocal exam Lymphatic: no cervical lymphadenopathy Results & Data ([facility]) Vital Signs (Past 12 Hours) Vital Signs Temp Pulse Resp BP BP Pulse Ox 08/15/19 06:00 65 18 116/41 L 92 08/15/19 04:00 37 C 75 17 101/49 L 120/56 L 94 08/15/19 02:00 75 20 121/44 L 117/53 L 94 08/15/19 00:00 36.8 C 69 18 110/41 L 115/51 L 93 08/14/19 22:00 63 17 118/52 L 92 Coding Level of Care Code 98210 Subseq Hosp Care Lvl 2 Diagnoses Encounter for pre-operative examination Z01.818 Arteriosclerosis of carotid artery I65.29 Carotid artery stenosis I65.29
[2019-08-15] MEDS ORDERED: ATORVASTATIN 10 MG TAB PO SCH (09:00)
[2019-08-15] MEDS ORDERED: ASPIRIN 325 MG ECTAB PO SCH (09:00)
[2019-08-15] MEDS: INSULIN ASPART 100 UNITS/ML 3 ML PEN SC SCH ×2 (09:03→12:06)
[2019-08-15] MEDS: SACUBITRIL-VALSARTAN 49/51 MG TAB PO SCH (10:10)
[2019-08-15] MEDS: KETOROLAC 0.5% OP SOLN 5 ML BTL OP SCH ×2 (10:11→14:30)
[2019-08-15] MEDS: TRIMETHOPRIM/POLYMYXIN B OP SCH ×4 (10:11→15:23)
[2019-08-15] MEDS: TRAMADOL HCL 50 MG TABLET PO PRN ×2 (10:29→14:20)
[2019-08-15] MEDS: NITROGLYCERIN/D5W 100MCG/ML 250 ML IV SCH (11:44)
--- NOTE | 2019-08-15 15:20 | Discharge Summary ---
Date of Service August 15, 2019 Principal Diagnosis Right carotid stenosis Discharge Exam Neck incision clean & dry, no neurological deficits Discharge Data Allergies Allergy/AdvReac Type Severity Reaction Status Date / Time surgical ritu Allergy Unknown Uncoded 08/14/19 05:43 Consultations 08/14/19 11:40 Consult Manager Talent Acquisition Routine Procedures Performed Operation Date: 08/14/19 08:00 Actual Procedures p Right Carotid Endarterectomy with Bovine Patch Angioplasty(Right) - Vance Walter MD Hospital Course (1) Carotid artery stenosis: 64 y/o female with high-grade stenosis of right internal carotid artery was taken to the operating room for endarterectomy. The procedure was well- tolerated, she was transferred to ICU for overnight monitoring. Her BP remained stable. Blood sugars were covered with SSI. She complained of headache and nausea in the morning. These symptoms had resolved later in the day. She was tolerating diet and oral analgesics. She was stable for discharge home in the afternoon. Total Time Total Time Spent Total Time Spent (In Minutes): 10 Discharge Plan Discharge Items Patient Disposition: Home - Self-Care Reason For Visit: Carotid Stenosis Discharge Diagnosis: right carotid endarterectomy Activity: Per Instructions section Lifting: No more than 10 pounds Bathing Comment: may shower Exercise/Sports: Wait until after follow-up appointment Driving/Machine Use: do not drive for 1 week Non-emergency contact: Surgeon Call non-emergency contact if: you have any medication questions, your symptoms worsen, your pain is not controlled, your pain is worsening, you have a fever, your temperature is above 101.5, your wound has increased redness, your wound has increased drainage and your wound pain has increased Follow-up/Referrals: Nick Murray MD [Primary Care Provider] - 08/18/19 11:00 am (Please arrive to your appointment by 10:45 A.M. If you need to reschedule this appointment, please call [phone].) Vance Walter MD [Surgeon] - (Please call to schedule follow up in clinic within 1 week) Diet: Regular Addtl Attending Provider Instructions: remove bandage to shower, you can cover the small incision with a band-aid as needed until drainage stops Pending Studies at Discharge: Yes Studies:: surgical pathology Stand-Alone Forms: My [facility] Medications and DC Order Prescriptions: New oxycodone-acetaminophen [Percocet] 5-325 mg tablet 1 - 2 tab PO .q4-6h PRN (Reason: pain, for initial therapy, max 6 tabs per day) Qty: 15 RF: 0 Continued (DME) FreeStyle Lite Strips strip See Dose Instructions .ROUTE .MEDSUPPLY Qty: 100 RF: 3 (DME) blood-glucose meter [FreeStyle Lite Meter] kit See Dose Instructions .ROUTE .MEDSUPPLY Qty: 1 RF: 0 aspirin 325 mg tablet 325 mg PO QAM RF: 0 metformin 500 mg tablet 500 mg PO QAM RF: 0 zolpidem [Ambien] 10 mg Tablet 10 mg PO HS RF: 0 fluoxetine 60 mg Tablet 60 mg PO PM RF: 0 Entresto 49-51 mg Tablet 1 tab PO BID RF: 0 levothyroxine 137 mcg tablet 137 mcg PO QAM RF: 0 atorvastatin 10 mg tablet 10 mg PO QAM RF: 0 Discharge Orders: Discharge Order (Routine); Ordered 08/15/19 Ordered By: Dean Carrillo Admission Data Admit Date/Time: 08/14/19 10:43 Attending Provider: Vance Walter Admit Provider: Vance Walter Primary Care Provider: Nick Murray Other Providers: Zaid Dias Other Interventions: Discharge Summary Assessment (RN) Last Done: 08/15/19 15:08 Coding Level of Care Code D/C Day Management <30 mins Diagnoses Carotid artery stenosis I65.29
== END 2019-08-15 16:04 | disposition home or self-care (01) | DRG 38 ==
LOC: ASU 05:03 → 1E 10:43

== ENCOUNTER 2019-12-19 18:18 | Inpatient (IN) ==
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
[2019-12-19 21:10] LABS: Basophils # (auto) 0.03 K/uL (0-0.2); Basophils % (auto) 0.5 %; Eosinophils # (auto) 0.17 K/uL (0-0.5); Eosinophils % (auto) 2.7 %; Hematocrit (blood only) 31.5 % (37-47); Hemoglobin 9.7 g/dL (12.0-16.0); Immature Granulocytes # (auto) 0.02 K/uL (0.00-0.02); Immature Granulocytes % (auto) 0.3 %; Lymphocytes % (auto) 38.8 %; Mean Corpuscular Hemoglobin 29.9 pg (25-34); Mean Corpuscular Hgb Conc 30.8 g/dL (32-36); Mean Corpuscular Volume 97.2 fL (80-100); Mean Platelet Volume 9.3 fL (7.4-10.4); Monocytes # (auto) 0.58 K/uL (0.11-0.59); Monocytes % (auto) 9.4 %; Neutrophils # (auto) 2.99 K/uL (1.4-6.5); Neutrophils % (auto) 48.3 %; Platelet Count 395 K/uL (130-400); RDW Coefficient of Variation 15.2 % (11.5-14.5); Red Blood Count 3.24 M/uL (4.2-5.4); White Blood Count 6.19 K/uL (4.8-10.8)
--- NOTE | 2019-12-19 21:16 | Emergency Department Note ---
ED Visit Note I have seen and examined this patient with Payton Lau and generally agree with the treatment plan as discussed. . : Closed fracture of left proximal humerus Qualifiers: Encounter type: initial encounter Fracture morphology: unspecified fracture morphology Qualified Code(s): S42.202A - Unspecified fracture of upper end of left humerus, initial encounter for closed fracture
[2019-12-19 21:31] LABS: Alanine Aminotransferase 20 U/L (12-78); Albumin Level 3.3 gm/dl (3.4-5.0); Aspartate Aminotransferase 27 U/L (15-37); BUN Creatinine Ratio 7.5 (10-20); Blood Urea Nitrogen 8 mg/dl (7-18); Calcium 8.9 mg/dl (8.5-10.1); Carbon Dioxide 23 mmol/L (21-32); Chloride 110 mmol/L (98-107); Creatinine Clr Calc Pharmacy 48.3 ml/min; Est GFR (African American) 60.6; Est GFR (Non-African American) 52.3; Glucose 98 mg/dl (70-99); Magnesium 2.2 mg/dl (1.8-2.4); Potassium 4.2 mmol/L (3.5-5.1); Sodium 141 mmol/L (136-145)
[2019-12-19 21:41] LABS: Albumin Globulin Ratio 0.8 (0.9-2); Alkaline Phosphatase 99 U/L (45-117); Bilirubin,Total 0.9 mg/dl (0.2-1); Globulin 4.1 gm/dl (2.5-4.0); Total Protein 7.4 gm/dl (6.4-8.2); Troponin I < 0.015 ng/ml (0-0.045)
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
[2019-12-19 23:42] LABS: Appearance Urine Clear (Clear); Bilirubin Urine Negative (Negative); Blood Urine Negative (Negative); Color Urine Yellow; Glucose Urine UA Negative (Negative); Ketones Urine Negative (Negative); Leukocyte Esterase Urine Negative (Negative); Nitrite Urine Negative (Negative); Protein Urine Negative (Negative); Specific Gravity Urine 1.008 (1.000-1.030); Urobilinogen Urine Negative (Negative)
[2019-12-20] MEDS ORDERED: GLUCAGON FOR INJ 1 MG VIAL SQ PRN (00:38)
[2019-12-20] MEDS ORDERED: CARBOHYDRATES FOR HYPOGLYCEMIA PO PRN (00:38)
[2019-12-20] MEDS ORDERED: GLUCOSE 10 TABS/TUBE PO PRN (00:38)
[2019-12-20] MEDS ORDERED: DEXTROSE 50% 50 ML SYRINGE IV PRN (00:38)
[2019-12-20] MEDS ORDERED: GLUCOSE 40% GEL 15 GM TUBE PO PRN (00:38)
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
[2019-12-20] MEDS: LEVOTHYROXINE SODIUM 137 MCG TABLET PO SCH (07:27)
[2019-12-20 08:02] LABS: Basophils # (auto) 0.02 K/uL (0-0.2); Basophils % (auto) 0.4 %; Eosinophils # (auto) 0.14 K/uL (0-0.5); Eosinophils % (auto) 3.1 %; Hematocrit (blood only) 31.7 % (37-47); Hemoglobin 9.6 g/dL (12.0-16.0); Immature Granulocytes # (auto) 0.01 K/uL (0.00-0.02); Immature Granulocytes % (auto) 0.2 %; Lymphocytes # (auto) 2.03 K/uL (1.2-3.4); Lymphocytes % (auto) 45.2 %; Mean Corpuscular Hemoglobin 29.2 pg (25-34); Mean Corpuscular Hgb Conc 30.3 g/dL (32-36); Mean Corpuscular Volume 96.4 fL (80-100); Mean Platelet Volume 9.1 fL (7.4-10.4); Monocytes # (auto) 0.51 K/uL (0.11-0.59); Monocytes % (auto) 11.4 %; Neutrophils # (auto) 1.78 K/uL (1.4-6.5); Neutrophils % (auto) 39.7 %; Platelet Count 362 K/uL (130-400); RDW Coefficient of Variation 15.2 % (11.5-14.5); RDW Standard Deviation 51.3 fL (36.4-46.3); Red Blood Count 3.29 M/uL (4.2-5.4); White Blood Count 4.49 K/uL (4.8-10.8)
[2019-12-20 08:09] LABS: Prothrombin Time 10.6 Seconds (9.0-12.0)
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
[2019-12-20 08:39] LABS: BUN Creatinine Ratio 8.1 (10-20); Calcium 8.5 mg/dl (8.5-10.1); Creatinine Clr Calc Pharmacy 69.8 ml/min; Est GFR (African American) 91.8; Est GFR (Non-African American) 79.2; Potassium 3.6 mmol/L (3.5-5.1)
[2019-12-20] MEDS: INSULIN ASPART 100 UNITS/ML 3 ML PEN SC SCH ×4 (08:56→20:34)
[2019-12-20 09:03] LABS: Folate (Folic Acid) 14.39 ng/ml (>5.38)
[2019-12-20] MEDS: ATORVASTATIN 10 MG TAB PO SCH (09:40)
[2019-12-20] MEDS: SACUBITRIL-VALSARTAN 49/51 MG TAB PO SCH ×2 (09:40→20:33)
[2019-12-20] MEDS: ASPIRIN 81 MG ECTAB PO SCH (09:40)
[2019-12-20] MEDS: levETIRAcetam 250 MG TAB PO SCH ×2 (09:40→20:32)
--- NOTE | 2019-12-20 10:38 | Anesthesiology Consultation ---
Date of Service December 20, 2019 Assessment & Plan (1) Encounter for pre-operative examination: COVID assessment: Patient traveled to [place] on 12/12/19. Routine preop COVID test performed on 12/20/19. The results are pending. Chart Review Chart Review: data entry associate initiated History Surgery Operation Date: 12/21/19 07:30 Proposed Procedures p Left Total Shoulder Arthroplasty Reverse, Fracture(Left) - Jose Murillo, Height/Weight Height: 5 ft 4 in Weight: 73.8 kg Allergies Allergy/AdvReac Type Severity Reaction Status Date / Time Opioids - Morphine Analogues AdvReac Unknown Unknown Unverified 12/19/19 23:13 surgical ritu Allergy Unknown Uncoded 12/19/19 23:13 Medications Home Medications Medication Instructions Recorded Confirmed Last Taken blood sugar diagnostic #100 ea 03/26/19 12/08/19 Unknown blood-glucose meter #1 ea 03/26/19 12/08/19 Unknown metformin 500 mg tablet 500 mg PO QAM tab 05/29/19 12/19/19 08/13/19 09:00 zolpidem [Ambien] 10 mg PO HS 08/12/19 12/19/19 08/13/19 20:00 5 mg atorvastatin 10 mg tablet 10 mg PO QAM #90 tab 09/10/19 12/19/19 Unknown sacubitril 49 mg-valsartan 51 mg 1 tab PO BID #180 tab 09/12/19 12/19/19 Unknown tablet escitalopram oxalate 10 mg tablet 10 mg PO DAILY #90 tab 12/08/19 12/19/19 Unknown lorazepam 1 mg tablet 1 mg PO BID PRN #30 tab 12/08/19 12/19/19 Unknown levothyroxine 137 mcg tablet 137 mcg PO QAM 30 Days #30 tab 12/17/19 12/19/19 Unknown aspirin [Aspir-81] 81 mg PO BID 12/19/19 12/19/19 Unknown levetiracetam [Keppra] 750 mg PO BID 12/19/19 12/19/19 Unknown Active Medications Generic Name Dose Route Start Last Admin Trade Name Freq PRN Reason Stop Dose Admin Aspirin 81 mg 12/20/19 09:00 12/20/19 09:40 Ecotrin Ectab PO 01/19/20 08:59 81 mg BID EL Administration Atorvastatin Calcium 10 mg 12/20/19 09:00 12/20/19 09:40 Lipitor PO 01/19/20 08:59 10 mg QAM EL Administration Insulin Aspart 0 units 12/20/19 07:30 12/20/19 08:56 Novolog Flexpen SC 01/19/20 07:29 1 units ACHS EL Administration Levetiracetam 750 mg 12/20/19 09:00 12/20/19 09:40 Keppra PO 01/19/20 08:59 750 mg BID EL Administration Levothyroxine Sodium 137 mcg 12/20/19 06:30 12/20/19 07:27 Levothyroxine Sodium PO 01/19/20 06:29 137 mcg DAILYBB EL Administration Sacubitril/Valsartan 1 tab 12/20/19 09:00 12/20/19 09:40 Entresto 49/51mg PO 01/19/20 08:59 1 tab BID EL Administration Past Medical History Medical History Anxiety Carotid artery stenosis Chronic systolic congestive heart failure (Chronic) CVA (cerebral vascular accident) (Resolved ~03/2019) Depression Diabetes type 2, controlled (Chronic) Dyslipidemia (Chronic) Melita's thyroiditis (Inactive) History of anesthesia reaction "I coded during my tubal ligation." 30+ years ago - says she is very sensistive to anesthesia, she was told to tell anesthesia that she doesn't need much Hypoglycemia Hypothyroidism (Chronic) Insomnia (Chronic) Non-ischemic cardiomyopathy EF 25% on stress echo 06/17/19. Has chronically refused AICD placement Sleep apnea no longer using CPAP since wt loss Vitamin B12 deficiency (Inactive) Vitamin D deficiency (Inactive) Past Family History Family History Brother Alcoholism Mother Diabetes Father Prostate cancer Sister Breast cancer Slow to wake up after anesthesia Diabetes Denies family history of Ovarian cancer Myocardial infarction Colorectal cancer Hypertension Stroke Past Surgical History Surgical History History of cardiac cath 10 years ago - CP - [facility] - no stents 15 years ago - [facility] - no stents History of cholecystectomy 2008 History of esophagogastroduodenoscopy (EGD) History of tooth extraction History of tubal ligation S/P gastric bypass (~2008) Social History Smoking Status: Former smoker tobacco type: cigarettes Smoking End Date: 1982 Hx Alcohol Use: No Hx Substance Use: No substance use type: does not use Physical Exam Vital Signs Last Vital Signs Temp 99.1 F 12/20/19 07:03 Pulse 77 12/20/19 07:03 Resp 16 12/20/19 07:03 BP 130/66 12/20/19 07:03 Pulse Ox 96 12/20/19 07:03 Testing Laboratory Results 12/20/19 07:40 12/20/19 07:40 PT 10.6 Seconds (9.0-12.0) 12/20/19 07:40 INR 1.0 (0.9-1.1) 12/20/19 07:40 APTT Cancelled 12/19/19 20:55 Urine Color Yellow 12/19/19 23:30 Urine Appearance Clear (Clear) 12/19/19 23:30 Urine pH 5.0 (4.5-7.5) 12/19/19 23:30 Ur Specific [place] 1.008 (1.000-1.030) 12/19/19 23:30 Urine Protein Negative (Negative) 12/19/19 23:30 Urine Glucose (UA) Negative (Negative) 12/19/19 23:30 Urine Ketones Negative (Negative) 12/19/19 23:30 Urine Nitrite Negative (Negative) 12/19/19 23:30 Ur Leukocyte Esterase Negative (Negative) 12/19/19 23:30 12/20/19 08:31 POC Glucose 103 H Electrocardiogram Date: 04/19/19 Findings: + NSR @ (78bpm) Left anterior fascicular block. Low voltage in precordial leads. Abnormal R wave progression, early transition. Prolonged QT interval. Baseline wander in lead V5. Chest X-Ray Date: 12/19/19 IMPRESSION: 1. Left humeral head/neck fracture. 2. Otherwise, no acute process within the chest. Echocardiogram Date: 12/19/19 EF: 25-30% Moderately dilated LV with segmental abnormalities as described above and severely decreased systolic function. Normal RV size and function. Mild mitral regurgitation. Sinotubular junction measures 2.1 cm. There is an impaired relaxation pattern consistent with diastolic dysfunction grade 1. Stress Test Date: 06/17/19 Type: exercise Resting EF: 25% Negative exercise stress echocardiogram for ischemia at 94% MPHR. Resting echocardiogram with severe LV systolic dysfunction. Moderate LV dilatation. Mild left atrial dilatation. Mild mitral regurgitation. Trace to mild tricuspid regurgitation. Normal estimated RVSP. Compared to a resting echocardiogram of 02/12/2018, there has been no significant interval change in the resting LV systolic function.
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
[2019-12-20] MEDS ORDERED: LORazepam 0.5 MG/1 ML VIAL IV STA (14:50)
[2019-12-20] MEDS ORDERED: GADOBUTROL 65ML VIAL IV PRN (16:32)
[2019-12-20] MEDS: KETOROLAC TROMETHAMINE 15 MG/ML VIAL IV PRN ×2 (16:42→23:09)
--- NOTE | 2019-12-20 17:00 | Hospitalist Progress Note ---
Date of Service December 20, 2019 Assessment & Plan (1) Intermittent confusion: Etiology uncertain at this time, ?acute stress response, ?CVA/TIA or infectious source -Delirium prevention strategies -Check B12, Folate -MRI Brain -Neuro consultation appreciated -Will continue to hold Escitalopram and Ativan as patient reports she did not start these medications; hold Ambien as well (2) Closed fracture of left proximal humerus: Limited mobility secondary to pain -Maintain sling -Pain control -Orthopedics appreciated - to surgery tomorrow. NPO after midnight (3) New onset seizure: Unclear source -Check MRI - no acute change, age related changes -Continue Keppra -Keppra level pending -Seizure precautions Neuro consult - seizures possibly secondary to abrupt ambien discontinuation in the setting of acute stress and anxiety. Recommends EEG and changing Keppra to Lamictal given depression (4) Anxiety: As above Will give melatonin for sleep per Dr. Robledo recommendation (5) Non-ischemic cardiomyopathy: Stable, no evidence of acute decompensation -Continue home medications, Entresto, ASA, Atorvastatin (6) Hypothyroidism: Chronic. TSH within normal limits -Continue Synthroid (7) Dyslipidemia: Chronic -Continue Atorvastatin (8) Diabetes type 2, controlled: Chronic, well controlled -Hold Metformin -ISS (9) Depression: Chronic -Resume escitalopram (10) Carotid artery stenosis: S/P carotid endarterectomy -Continue ASA and statin (11) CVA (cerebral vascular accident): Chronic, no focal deficit noted -Conitnue ASA and statin Consider sleep study for outpatient (12) S/P gastric bypass: Chronic -B12 high Folate high (13) DVT prophylaxis: SCDs, hold dvt chemoprophylaxis for surgery tomorrow Admission and Anticipated Discharge Date Admission Date: December 19, 2019 Subjective Patient is able to converse but inevitably circles back to a fixation on whether or not she truly interacted by text with a family member. She otherwise has no complaints ROS Constitutional: no chills, aches, sweats or fever Respiratory: no sob,cough, sputum, or wheezing Cardiac: no chest pain, palpitations, edema, orthopnea or lightheadedness GI: no abdominal pain, nausea, vomiting, diarrhea or constipation : no dysuria or hesitancy Extremities: no joint pain or weakness Skin: no rash All other systems reviewed and negative Physical Exam Physical Exam: General: no distress Eyes: normal inspection, PERLL Respiratory: chest non tender, clear to auscultation, normal breath sounds, no respiratory distress, no accessory muscle use Cardiac: regular rate and rhythm, no rub or gallop, no murmur, no edema, no jvd GI/: active bowel sounds, no abd pain or tenderness, soft, non distended Extremities: normal range of motion, normal strength, non tender Neuro/Psych: alert and oriented x 3, normal mood and affect Skin: normal color, dry Results & Data Results & Data ([facility]) Vital Signs (Past 12 Hours) Vital Signs Temp Pulse Resp BP Pulse Ox 12/20/19 16:39 36.7 C 71 16 104/65 97 12/20/19 07:03 37.3 C 77 16 130/66 96 PG Care Time/CCT Total # of Minutes Spent Total Time Spent with Patient: Total time spent is greater than 50% in coordination of care (as documented) at patient's floor/unit and/or counseling patient: Coding Level of Care Code 57852 Subseq Hosp Care Lvl 3 Diagnoses Intermittent confusion R41.0 Closed fracture of left proximal humerus S42 Encounter type: initial encounter Fracture morphology: unspecified fracture morphology New onset seizure R56.9 Anxiety F41.9 Non-ischemic cardiomyopathy I42.8 Hypothyroidism E03.9 Hypothyroidism type: unspecified Dyslipidemia E78.5 Diabetes type 2, controlled E11.9 Diabetes mellitus fdc insulin use: without fdc use Diabetes mellitus complication status: without complication Depression F32.9 Carotid artery stenosis I65.29 CVA (cerebral vascular accident) I63.9 S/P gastric bypass Z98.84 DVT prophylaxis Z29.9 (1) Closed fracture of left proximal humerus Encounter type: initial encounter Fracture morphology: unspecified fracture morphology Qualified Code(s): S42A - Unspecified fracture of upper end of left humerus, initial encounter for closed fracture (2) Hypothyroidism Hypothyroidism type: unspecified Qualified Code(s): E03.9 - Hypothyroidism, unspecified (3) Diabetes type 2, controlled Diabetes mellitus fdc insulin use: without fdc use Diabetes mellitus complication status: without complication Qualified Code(s): E11.9 - Type 2 diabetes mellitus without complications
--- NOTE | 2019-12-20 17:01 | Magnetic Resonance Report ---
MR brain wo/w con CLINICAL HISTORY: AMS, seizure mental status change COMPARISON STUDY: 06/29/2014 TECHNIQUE: Utilizing a 1.5 Tea magnet and dedicated coil, multiplanar, multiecho imaging of the br ain was performed pre and postcontrast administration. IV administration of 7.5 mL of Gadavist contr ast was uneventful. FINDINGS: Diffusion-weighted images show no evidence for an acute ischemic event. Several foci of increased signal within the periventricular and deep white matter regions. Sella and parasellar regions are unremarkable. The pituitary is unremarkable. Internal auditory canal s are normal. Postcontrast images show a trace amount of peripheral enhancement of a small focus of diminished sign al right superior parietal lobe. This is suggestive of a small benign cavernoma. No additional focus of enhancement is appreciated. IMPRESSION: 1. Chronic and age-related change. 2. No acute intracranial abnormality. ACT 112: Negative or not required by law. The above report was generated using voice recognition software. It may contain grammatical, syntax or spelling errors. Electronically signed by: Sam Wheeler M.D. 12/20/2019 5:00 PM
[2019-12-20] MEDS: lamoTRIgine 25 MG TAB PO SCH (20:32)
[2019-12-20] MEDS: MELATONIN 3 MG TAB PO PRN (21:18)
[2019-12-21] MEDS ORDERED: Nursing to Pharmacy Communication SCH ×2 (02:45→13:30)
[2019-12-21] MEDS: INSULIN ASPART 100 UNITS/ML 3 ML PEN SC SCH ×5 (05:44→21:54)
[2019-12-21] MEDS: LEVOTHYROXINE SODIUM 137 MCG TABLET PO SCH (06:02)
--- NOTE | 2019-12-21 06:47 | History & Physical Bridge Note ---
Date of Service December 21, 2019 History & Physical Bridge Note I have examined the patient, reviewed the History & Physical and in the interval since the performance of the History & Physical I have noted the following changes of clinical significance: no changes noted
--- NOTE | 2019-12-21 06:47 | Orthopedic Progress Note ---
Date of Service December 21, 2019 Assessment & Plan (1) Closed fracture of left proximal humerus: We will proceed with a left fracture reverse shoulder arthroplasty this morning. Consent has been signed. I talked over with her daughter as well and she would like to proceed. She has been n.p.o. past midnight tonight. We should have her left shoulder fix this morning. Present on Admission?: Yes Patric Mathew was seen and examined at bedside this morning. Overall she is in good spirits. She is ready to have her left shoulder fixed today. She has been medically cleared by the hospitalist. She is also been seen by neurology who changed a couple of her medications. Physical Exam Musculoskeletal: Physical examination of her left shoulder is unchanged. She has some ecchymosis in the area. She is neurovascularly intact at her hand and wrist. I did not check her axillary nerve. I cannot do any range of motion testing with her. Results & Data ([facility]) Vital Signs (Past 12 Hours) Vital Signs Temp Pulse Resp BP Pulse Ox 12/21/19 06:04 36.6 C 72 18 125/63 96 12/20/19 22:55 36.8 C 75 16 109/68 95 PG Care Time/CCT Total # of Minutes Spent Total Time Spent with Patient: Total time spent is greater than 50% in coordination of care (as documented) at patient's floor/unit and/or counseling patient: Coding Level of Care Code 83620 Inpt Consult Level 3 Diagnoses Closed fracture of left proximal humerus S4 Encounter type: initial encounter Fracture morphology: unspecified fracture morphology (1) Closed fracture of left proximal humerus Encounter type: initial encounter Fracture morphology: unspecified fracture morphology Qualified Code(s): S42.A - Unspecified fracture of upper end of left humerus, initial encounter for closed fracture
[2019-12-21] MEDS ORDERED: fentaNYL citrate 100 MCG/2 ML VIAL ONE (07:18)
[2019-12-21] MEDS ORDERED: PROPOFOL IV EMULSION 10 MG/ML 20 ML VIAL IV ONE (07:18)
[2019-12-21] MEDS ORDERED: ORTHO JOINT ANESTHETIC ONE (07:25)
[2019-12-21] MEDS ORDERED: BUPIVACAINE 0.5 % 5 MG/1 ML PF 10ML VIAL ONE ×2 (07:26→07:29)
[2019-12-21] MEDS ORDERED: ATROPINE SULFATE 0.1 MG/ML 10ML SYR IV PRN (07:35)
[2019-12-21] MEDS ORDERED: ONDANSETRON INJ 2 MG/ML 2 ML VIAL IV PRN (07:35)
[2019-12-21] MEDS ORDERED: ePHEDrine sulfate 50 MG/ML AMP IV PRN (07:35)
[2019-12-21] MEDS ORDERED: fentaNYL citrate 100 MCG/2 ML VIAL IV PRN (07:35)
[2019-12-21] MEDS ORDERED: ROPIVACAINE 0.5% HCL/PF 150 MG, BUPIVACAINE 0.5% MPF 30 ML, EPINEPHrine 30MG/30ML (OR U... INFIL SCH (08:30)
[2019-12-21] MEDS ORDERED: CEFAZOLIN 2000MG 2,000 MG/15 ML SYR IV ONE (08:50)
[2019-12-21] MEDS ORDERED: LIDOCAINE HCL 2% 2 ML VIAL/AMP(20MG/ML) INFIL ONE (09:22)
[2019-12-21] MEDS ORDERED: ONDANSETRON INJ 2 MG/ML 2 ML VIAL ONE (09:22)
[2019-12-21] MEDS ORDERED: ePHEDrine sulfate 50 MG/ML AMP ONE (09:22)
[2019-12-21] MEDS ORDERED: PHENYLEPHRINE HCL 10 MG/ML VIAL ONE (09:22)
[2019-12-21] MEDS ORDERED: ePHEDrine sulfate 50 MG/ML SYR ONE (09:22)
--- NOTE | 2019-12-21 10:10 | Operative Report ---
PG Post Operative Report Pre & Post Diagnosis Operation Date: 12/21/19 07:30 Pre-Op Diagnosis: Displaced 4 part left proximal humerus fracture Post-Op Diagnosis: Displaced 4 part left proximal humerus fracture I identified the patient and participated in the time-out.: Yes Procedure Operation Date: 12/21/19 07:30 Actual Procedures p Left Fracture Reverse Total Shoulder Arthoplasty(Left) - Jose Murillo DO Surgeon Jose Murillo DO Mammography Technologist Padilla Woods PAC Estimated Blood Loss 250 Findings Consistent with Post-Op Diagnosis Specimens Left humeral head Complications none Disposition Disposition: Recovery Room Indications Priyanka is a 64-year-old female who sustained a left shoulder injury about 5 days ago. She came to the emergency room and radiographs demonstrated a displaced 4 part left proximal humerus fracture. After discussions with her and her daughter, she elected proceed with a left reverse shoulder arthroplasty. Description of Procedure Implants used: I used a [employer]omet comprehensive fracture reverse shoulder arthroplasty system with a size 12 press-fit fracture stem, a 25 mm mini baseplate, a 36 mm standard eccentric glenosphere, a standard humeral tray, and a standard humeral bearing. No cement was used during the case. On December 21, 2019 Priyanka was brought down from her hospital room to the preoperative holding area. The operative extremity was identified and signed. She was given a pre-operative antibiotic and a left interscalene nerve block. She was taken back to the operating room and laid on the table in the supine position. She was put under general anesthesia. The left shoulder was prepped and draped in sterile fashion. A timeout was done. The patient and the operative extremity was properly identified. A deltopectoral approach was used. Dissection was taken down through the fascia and the anterior shoulder was exposed. The long head of the biceps tendon was identified and tenotomized. There was already a fracture between the greater tuberosity and the lesser tuberosity. This was opened up more with an osteotome and the humeral head was removed. The tuberosities were then tagged with #5 FiberWire suture. The glenoid was then exposed. Time was spent doing a complete circumferential capsular labral release. A guide was placed for a 25 mm mini baseplate and a guide pin was placed at 10 degrees of inclination. The 25 mm mini baseplate was then reamed. The final baseplate was then impacted into place. A single central screw was placed followed by superior and inferior locking screws. A 36 mm eccentric glenosphere was then impacted into place. The surrounding soft tissues were injected with 100 cc of an orthopedic pain control cocktail. The proximal humerus was then exposed. Sequential reaming up to a size 12 reamer was done. A size 12 trial humeral stem was then impacted into place. A standard humeral tray was placed. The shoulder was then reduced. The shoulder was brought through a full range of motion and felt to be stable. The shoulder was then dislocated and the trials were removed. Two #5 FiberWire sutures were then placed in the humeral stem. The final size 12 press-fit fracture stem was then impacted into place. A standard humeral bearing was then snapped onto a standard humeral tray and the standard tray was then impacted onto the humeral stem. The shoulder was reduced. The shoulder was brought through a full range of motion and felt to be stable. The tuberosities were then tied around the fracture stem and to the fracture stem through the eyelet holes. A total of 6 FiberWire sutures were used to hold down the rotator cuff in both the horizontal and vertical planes. The shoulder was brought through a full range of motion and felt to be stable. The wound was then irrigated. A 3- minute Betadine lavage was then done. The fascial layer was then closed with 2- 0 Vicryl suture. Skin was closed with 2-0 Vicryl and 3-0 nylon suture. A Silverlon dressing was placed. She was then placed in a regular arm sling. She was then extubated and transferred to [facility]. She was taken to the postanesthesia care unit in stable condition. She tolerated the procedure well. Padilla Woods PA-C, was present for the entire procedure. He was critical for patient positioning, prepping, draping, retraction exposure, wound closure and application of sterile dressing. I attest to the content of the Intraoperative Record and any orders documented therein. Any exceptions are noted below.
--- NOTE | 2019-12-21 11:10 | Anesthesiology Progress Note ---
Date of Service December 21, 2019 Anesthesia Post Procedure Vital Signs Vital Signs: Temp Pulse Pulse Resp BP Pulse Ox 12/21/19 11:00 92 H 18 96/49 L 98 12/21/19 10:50 36.0 C L 87 20 95/54 L 94 12/21/19 06:04 36.6 C 72 18 125/63 96 12/20/19 22:55 36.8 C 75 16 109/68 95 12/20/19 16:39 36.7 C 71 16 104/65 97 Pain Intensity Left Shoulder: Pain Intensity: 7 Transfer of Care Handoff Completed per policy Notes Mental Status: alert / awake / arousable and participated in evaluation Patient Amnestic to Procedure: Yes Nausea / Vomiting: adequately controlled Pain: adequately controlled Airway Patency, RR, SpO2: stable & adequate BP & HR: stable & adequate Hydration State: stable & adequate Anesthetic Complications: no major complications apparent and Pt Satisfied with anesthetic care
[2019-12-21] MEDS ORDERED: SODIUM CHLORIDE 0.9% 1000ML 1,000 ML IV SCH (11:29)
[2019-12-21] MEDS: ONDANSETRON INJ 2 MG/ML 2 ML VIAL IV PRN (11:41)
[2019-12-21 11:43] LABS: Hematocrit (blood only) 28.1 % (37-47); Mean Corpuscular Volume 96.9 fL (80-100); Mean Platelet Volume 8.8 fL (7.4-10.4); Platelet Count 316 K/uL (130-400); RDW Coefficient of Variation 15.7 % (11.5-14.5); RDW Standard Deviation 52.8 fL (36.4-46.3); White Blood Count 10.08 K/uL (4.8-10.8)
--- NOTE | 2019-12-21 11:53 | XRay Report ---
XR shoulder LT min 2V routine CLINICAL HISTORY: Post shoulder surgery COMPARISON STUDY: Left shoulder 12/19/2019. FINDINGS: Status post reverse left total shoulder arthroplasty. The hardware appears intact. No dislo cation. Residual fracture fragments at the proximal humerus are again noted. IMPRESSION: Status post left total shoulder arthroplasty. No evidence for hardware complication. ACT 112: Negative or not required by law. Electronically signed by: Dwayne Huston M.D. 12/21/2019 11:52 AM
[2019-12-21 11:59] LABS: BUN Creatinine Ratio 12.9 (10-20); Calcium 8.1 mg/dl (8.5-10.1); Creatinine Clr Calc Pharmacy 63.3 ml/min; Est GFR (African American) 81.6; Est GFR (Non-African American) 70.4; Potassium 3.9 mmol/L (3.5-5.1)
[2019-12-21] MEDS: ATORVASTATIN 10 MG TAB PO SCH (13:27)
[2019-12-21] MEDS: ESCITALOPRAM OXALATE 10 MG TAB PO SCH (13:28)
[2019-12-21] MEDS: SACUBITRIL-VALSARTAN 49/51 MG TAB PO SCH (13:28)
[2019-12-21] MEDS: levETIRAcetam 250 MG TAB PO SCH ×2 (13:28→20:14)
--- NOTE | 2019-12-21 13:55 | Hospitalist Progress Note ---
Date of Service December 21, 2019 Assessment & Plan (1) Intermittent confusion: Etiology uncertain at this time, ?acute stress response, ?CVA/TIA or infectious source -Delirium prevention strategies -Check B12, Folate -MRI Brain showed chronic age releated changes but no acute abnormality -Neuro consultation appreciated -Will give Escitalopram but hold Ativan as patient reports she did not start these medications; hold Ambien as well (2) Closed fracture of left proximal humerus: Limited mobility secondary to pain s/p total shoulder arthroplasty 12/20 (3) New onset seizure: Unclear source -Check MRI - no acute change, age related changes -Continue Keppra -Keppra level pending -Seizure precautions Neuro consult - seizures possibly secondary to abrupt ambien discontinuation in the setting of acute stress and anxiety. Recommends EEG and changing Keppra to Lamictal given depression. Keppra should be maintained while patient is titrating up the Lamictal. Lamictal to be titrated as follows: 25mg x 2 weeks the 50 mg x 2 weeks, then 75 mg x 2 weeks then increase 25 mg a week there after to 250 - 300mg per day (4) Anxiety: As above Will give melatonin for sleep per Dr. Robledo recommendation (5) Non-ischemic cardiomyopathy: Stable, no evidence of acute decompensation -Continue home medications, Entresto, ASA, Atorvastatin (6) Hypothyroidism: Chronic. TSH within normal limits -Continue Synthroid (7) Dyslipidemia: Chronic -Continue Atorvastatin (8) Diabetes type 2, controlled: Chronic, well controlled -Hold Metformin -ISS (9) Depression: Chronic -Resume escitalopram as above (10) Carotid artery stenosis: S/P carotid endarterectomy -Continue ASA and statin (11) CVA (cerebral vascular accident): Chronic, no focal deficit noted -Conitnue ASA and statin Consider sleep study for outpatient (12) S/P gastric bypass: Chronic -B12 high Folate high (13) DVT prophylaxis: SCDs, patient is on ASA bid Admission and Anticipated Discharge Date Admission Date: December 19, 2019 Subjective Ms. Murrieta is post op today for a shoulder arthroplasty with Dr. Murillo. She has no complaints, ate a little bit of her lunch. Her blood pressures were a little bit low but have come up. ROS Constitutional: no chills, aches, sweats or fever Respiratory: no sob,cough, sputum, or wheezing Cardiac: no chest pain, palpitations, edema, orthopnea or lightheadedness GI: no abdominal pain, nausea, vomiting, diarrhea or constipation : no dysuria or hesitancy Extremities: no joint pain or weakness Skin: no rash All other systems reviewed and negative Physical Exam Physical Exam: General: no distress Eyes: normal inspection, PERLL Respiratory: chest non tender, clear to auscultation, normal breath sounds, no respiratory distress, no accessory muscle use Cardiac: regular rate and rhythm, no rub or gallop, no murmur, no edema, no jvd GI/: active bowel sounds, no abd pain or tenderness, soft, non distended Extremities: normal range of motion, normal strength, non tender Neuro/Psych: alert and oriented x 3, normal mood and affect Skin: normal color, dry Results & Data Results & Data ([facility]) Vital Signs (Past 12 Hours) Vital Signs Temp Pulse Pulse Pulse Resp BP Pulse Ox 12/21/19 13:32 90 18 107/66 98 12/21/19 12:30 81 93/56 L 12/21/19 12:00 81 97/58 L 93 12/21/19 11:30 36.5 C 85 14 94/57 L 96 12/21/19 11:10 85 18 101/51 L 100 12/21/19 11:00 92 H 18 96/49 L 98 12/21/19 10:50 36.0 C L 87 20 95/54 L 94 12/21/19 06:04 36.6 C 72 18 125/63 96 PG Care Time/CCT Total # of Minutes Spent Total Time Spent with Patient: Total time spent is greater than 50% in coordination of care (as documented) at patient's floor/unit and/or counseling patient: Coding Level of Care Code 29665 Subseq Hosp Care Lvl 3 Diagnoses Intermittent confusion R41.0 Closed fracture of left proximal humerus S42.A Encounter type: initial encounter Fracture morphology: unspecified fracture morphology New onset seizure R56.9 Anxiety F41.9 Non-ischemic cardiomyopathy I42.8 Hypothyroidism E03.9 Hypothyroidism type: unspecified Dyslipidemia E78.5 Diabetes type 2, controlled E11.9 Diabetes mellitus long term care phlebotomist insulin use: without senior living use Diabetes mellitus complication status: without complication Depression F32.9 Carotid artery stenosis I65.29 CVA (cerebral vascular accident) I63.9 S/P gastric bypass Z98.84 DVT prophylaxis Z29.9 (1) Closed fracture of left proximal humerus Encounter type: initial encounter Fracture morphology: unspecified fracture morphology Qualified Code(s): S42.202A - Unspecified fracture of upper end of left humerus, initial encounter for closed fracture (2) Hypothyroidism Hypothyroidism type: unspecified Qualified Code(s): E03.9 - Hypothyroidism, unspecified (3) Diabetes type 2, controlled Diabetes mellitus long term care phlebotomist insulin use: without long term care phlebotomist use Diabetes mellitus complication status: without complication Qualified Code(s): E11.9 - Type 2 diabetes mellitus without complications
[2019-12-21] MEDS: CEFAZOLIN 2000MG 2,000 MG/15 ML SYR IV SCH (18:53)
[2019-12-21] MEDS: ASPIRIN 81 MG ECTAB PO SCH (20:14)
[2019-12-21] MEDS: lamoTRIgine 25 MG TAB PO SCH (20:14)
[2019-12-21] MEDS: MELATONIN 3 MG TAB PO PRN (21:53)
[2019-12-22] MEDS: CEFAZOLIN 2000MG 2,000 MG/15 ML SYR IV SCH ×2 (03:02→03:37)
[2019-12-22 03:48] LABS: Basophils # (auto) 0.01 K/uL (0-0.2); Basophils % (auto) 0.1 %; Eosinophils # (auto) 0.03 K/uL (0-0.5); Eosinophils % (auto) 0.3 %; Hematocrit (blood only) 26.3 % (37-47); Hemoglobin 7.9 g/dL (12.0-16.0); Immature Granulocytes # (auto) 0.03 K/uL (0.00-0.02); Immature Granulocytes % (auto) 0.3 %; Lymphocytes # (auto) 1.45 K/uL (1.2-3.4); Lymphocytes % (auto) 16.2 %; Mean Corpuscular Hemoglobin 29.5 pg (25-34); Mean Corpuscular Volume 98.1 fL (80-100); Monocytes # (auto) 0.82 K/uL (0.11-0.59); Monocytes % (auto) 9.2 %; Neutrophils # (auto) 6.62 K/uL (1.4-6.5); Neutrophils % (auto) 73.9 %; Platelet Count 379 K/uL (130-400); RDW Standard Deviation 54.5 fL (36.4-46.3); Red Blood Count 2.68 M/uL (4.2-5.4); White Blood Count 8.96 K/uL (4.8-10.8)
[2019-12-22 04:07] LABS: BUN Creatinine Ratio 14.6 (10-20); Creatinine Clr Calc Pharmacy 49.1 ml/min; Est GFR (African American) 59.9; Est GFR (Non-African American) 51.7; Potassium 4.1 mmol/L (3.5-5.1)
[2019-12-22] MEDS: ACETAMINOPHEN 325 MG TAB PO PRN ×2 (04:42→22:17)
[2019-12-22 04:53] LABS: RBC Morphology Unremarkable
[2019-12-22] MEDS: ONDANSETRON INJ 2 MG/ML 2 ML VIAL IV PRN (05:43)
[2019-12-22] MEDS: LEVOTHYROXINE SODIUM 137 MCG TABLET PO SCH (05:43)
--- NOTE | 2019-12-22 07:04 | Orthopedic Progress Note ---
Date of Service December 22, 2019 Assessment & Plan (1) Status post reverse arthroplasty of shoulder: Overall she is doing fairly well. She will be seen by physical therapy today for ambulation and range of motion exercises. She will be in a sling for 3 weeks. She is orthopedically stable for discharge when medically ready. She can follow-up in our office in 2 weeks for staple removal. At that time, we will start physical therapy. Full discharge instructions were placed in the discharge summary. Present on Admission?: Yes Patric Mathew was seen and examined at bedside this morning. Overall she is doing very well. She is not having too much pain in the left shoulder. She is happy with her progress. She has no complaints. Physical Exam Musculoskeletal: On physical examination of the left shoulder, she is wearing her sling as instructed. The dressing is clean and dry. Her radial, median, and ulnar nerves are checked and intact at her wrist. Her axillary nerve was not checked yet. Results & Data ([facility]) Vital Signs (Past 12 Hours) Vital Signs Temp Pulse Resp BP Pulse Ox 12/22/19 03:59 37.1 C 85 14 115/68 93 12/21/19 23:39 36.8 C 83 14 99/52 L 95 12/21/19 20:39 36.5 C 89 16 101/59 L 95 Diagnostic Findings Postoperative x-rays of the left shoulder show the prosthesis to be in anatomic alignment without any evidence of fracture, dislocation, or loosening. PG Care Time/CCT Total # of Minutes Spent Total Time Spent with Patient: Total time spent is greater than 50% in coordination of care (as documented) at patient's floor/unit and/or counseling patient: Coding Level of Care Code None Diagnoses Status post reverse arthroplasty of shoulder Z96.619
[2019-12-22] MEDS: ATORVASTATIN 10 MG TAB PO SCH (08:48)
[2019-12-22] MEDS: ESCITALOPRAM OXALATE 10 MG TAB PO SCH (08:48)
[2019-12-22] MEDS: levETIRAcetam 250 MG TAB PO SCH ×2 (08:48→20:39)
[2019-12-22] MEDS: ASPIRIN 81 MG ECTAB PO SCH ×2 (08:49→20:39)
[2019-12-22] MEDS: INSULIN ASPART 100 UNITS/ML 3 ML PEN SC SCH ×4 (08:52→20:40)
[2019-12-22] MEDS: KETOROLAC TROMETHAMINE 15 MG/ML VIAL IV PRN ×3 (09:00→22:15)
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
[2019-12-22] MEDS: lamoTRIgine 25 MG TAB PO SCH (20:39)
[2019-12-22] MEDS: SACUBITRIL-VALSARTAN 49/51 MG TAB PO SCH (22:15)
[2019-12-23] MEDS: LEVOTHYROXINE SODIUM 137 MCG TABLET PO SCH (05:43)
[2019-12-23] MEDS: KETOROLAC TROMETHAMINE 15 MG/ML VIAL IV PRN ×2 (05:47→11:58)
[2019-12-23 07:17] LABS: Basophils # (auto) 0.02 K/uL (0-0.2); Basophils % (auto) 0.3 %; Eosinophils # (auto) 0.22 K/uL (0-0.5); Eosinophils % (auto) 3.6 %; Hematocrit (blood only) 24.1 % (37-47); Hemoglobin 7.6 g/dL (12.0-16.0); Immature Granulocytes # (auto) 0.02 K/uL (0.00-0.02); Immature Granulocytes % (auto) 0.3 %; Lymphocytes # (auto) 1.63 K/uL (1.2-3.4); Lymphocytes % (auto) 26.6 %; Mean Corpuscular Hemoglobin 31.3 pg (25-34); Mean Corpuscular Hgb Conc 31.5 g/dL (32-36); Mean Corpuscular Volume 99.2 fL (80-100); Monocytes # (auto) 0.75 K/uL (0.11-0.59); Monocytes % (auto) 12.3 %; Neutrophils # (auto) 3.48 K/uL (1.4-6.5); Neutrophils % (auto) 56.9 %; Platelet Count 343 K/uL (130-400); RDW Coefficient of Variation 16.3 % (11.5-14.5); RDW Standard Deviation 58.2 fL (36.4-46.3); Red Blood Count 2.43 M/uL (4.2-5.4); White Blood Count 6.12 K/uL (4.8-10.8)
[2019-12-23 07:57] LABS: BUN Creatinine Ratio 15.9 (10-20); Calcium 8.1 mg/dl (8.5-10.1); Creatinine Clr Calc Pharmacy 55.6 ml/min; Est GFR (African American) 69.7; Est GFR (Non-African American) 60.1; Potassium 3.9 mmol/L (3.5-5.1)
[2019-12-23 08:00] LABS: RBC Morphology Unremarkable
[2019-12-23] MEDS: ACETAMINOPHEN 325 MG TAB PO PRN ×2 (08:56→13:04)
[2019-12-23] MEDS: SACUBITRIL-VALSARTAN 49/51 MG TAB PO SCH (09:00)
[2019-12-23] MEDS: ESCITALOPRAM OXALATE 10 MG TAB PO SCH (09:00)
[2019-12-23] MEDS: ASPIRIN 81 MG ECTAB PO SCH (09:00)
[2019-12-23] MEDS: levETIRAcetam 250 MG TAB PO SCH (09:01)
[2019-12-23] MEDS: INSULIN ASPART 100 UNITS/ML 3 ML PEN SC SCH ×3 (09:02→18:07)
[2019-12-23] MEDS: ATORVASTATIN 10 MG TAB PO SCH (09:02)
[2019-12-23] MEDS ORDERED: SODIUM CHLORIDE 0.9% 250 ML IV PRN (09:41)
--- NOTE | 2019-12-23 16:15 | Electroencephalogram ---
EEG Procedure Note Date of Service December 23, 2019 Start / End Times Start Time: 1:20 PM End Time: 1:40 PM Referring Physician VALENTIN Goncalves History Seizure disorder Home Medication List Home Medications Medication Instructions Recorded Confirmed Type blood sugar diagnostic #100 ea 03/26/19 12/08/19 Rx blood-glucose meter #1 ea 03/26/19 12/08/19 Rx metformin 500 mg tablet 500 mg PO QAM tab 05/29/19 12/19/19 History zolpidem [Ambien] 10 mg PO HS 08/12/19 12/19/19 History atorvastatin 10 mg tablet 10 mg PO QAM #90 tab 09/10/19 12/19/19 Rx sacubitril 49 mg-valsartan 51 mg 1 tab PO BID #180 tab 09/12/19 12/19/19 Rx tablet escitalopram oxalate 10 mg tablet 10 mg PO DAILY #90 tab 12/08/19 12/19/19 Rx lorazepam 1 mg tablet 1 mg PO BID PRN #30 tab 12/08/19 12/19/19 Rx levothyroxine 137 mcg tablet 137 mcg PO QAM 30 Days #30 tab 12/17/19 12/19/19 Rx aspirin [Aspir-81] 81 mg PO BID 12/19/19 12/19/19 History levetiracetam [Keppra] 750 mg PO BID 12/19/19 12/19/19 History Inpatient Medication List Acetaminophen (Tylenol) 650 mg PO Q4H PRN PRN Reason: pain/fever Stop: 01/19/20 00:37 Last Admin: 12/23/19 13:04 Dose: 650 mg Documented by: [id number] Admin: 12/23/19 08:56 Dose: 650 mg Documented by: [id number] Admin: 12/22/19 22:17 Dose: 650 mg Documented by: [id number] Admin: 12/22/19 04:42 Dose: 650 mg Documented by: [id number] Aspirin (Ecotrin Ectab) 81 mg PO BID EL Stop: 01/19/20 08:59 Last Admin: 12/23/19 09:00 Dose: 81 mg Documented by: [id number] Admin: 12/22/19 20:39 Dose: 81 mg Documented by: [id number] Admin: 12/22/19 08:49 Dose: 81 mg Documented by: [id number] Admin: 12/21/19 20:14 Dose: 81 mg Documented by: [id number] Admin: 12/20/19 09:40 Dose: 81 mg Documented by: [id number] Atorvastatin Calcium (Lipitor) 10 mg PO QAM [facility] Stop: 01/19/20 08:59 Last Admin: 12/23/19 09:02 Dose: 10 mg Documented by: [id number] Admin: 12/22/19 08:48 Dose: 10 mg Documented by: [id number] Admin: 12/21/19 13:27 Dose: 10 mg Documented by: [id number] Admin: 12/20/19 09:40 Dose: 10 mg Documented by: [id number] Escitalopram Oxalate (Lexapro Tab) 10 mg PO DAILY [facility] Stop: 01/20/20 08:59 Last Admin: 12/23/19 09:00 Dose: 10 mg Documented by: [id number] Admin: 12/22/19 08:48 Dose: 10 mg Documented by: [id number] Admin: 12/21/19 13:28 Dose: 10 mg Documented by: [id number] Gadobutrol (Gadavist 65ml) 7.5 ml IV ONCE PRN PRN Reason: Interaction Checking Stop: 12/24/19 16:31 Last Admin: 12/20/19 16:33 Dose: 7.5 ml Documented by: [id number] Insulin Aspart (Novolog Flexpen) 0 units SC ACHS [facility] Stop: 01/20/20 13:29 Last Admin: 12/23/19 13:04 Dose: 1 units Documented by: [id number] Cosigned by: [id number] Admin: 12/23/19 09:02 Dose: 1 units Documented by: [id number] Cosigned by: [id number] Admin: 12/22/19 20:40 Dose: 1 units Documented by: [id number] Cosigned by: [id number] Admin: 12/22/19 18:29 Dose: 2 units Documented by: [id number] Cosigned by: [id number] Admin: 12/22/19 13:10 Dose: 1 units Documented by: [id number] Cosigned by: [id number] Admin: 12/22/19 08:52 Dose: 1 units Documented by: [id number] Cosigned by: [id number] Admin: 12/21/19 21:54 Dose: 3 units Documented by: [id number] Cosigned by: [id number] Admin: 12/21/19 18:45 Dose: 4 units Documented by: [id number] Cosigned by: [id number] Admin: 12/21/19 13:37 Dose: 2 units Documented by: [id number] Cosigned by: [id number] Ketorolac Tromethamine (Toradol) 15 mg IV Q6H PRN PRN Reason: Pain Stop: 12/25/19 00:37 Last Admin: 12/23/19 11:58 Dose: 15 mg Documented by: [id number] Admin: 12/23/19 05:47 Dose: 15 mg Documented by: [id number] Admin: 12/22/19 22:15 Dose: 15 mg Documented by: [id number] Admin: 12/22/19 15:55 Dose: 15 mg Documented by: [id number] Admin: 12/22/19 09:00 Dose: 15 mg Documented by: [id number] Admin: 12/20/19 23:09 Dose: 15 mg Documented by: [id number] Admin: 12/20/19 16:42 Dose: 15 mg Documented by: [id number] Lamotrigine (Lamictal) 25 mg PO HS [facility] Stop: 01/19/20 20:59 Last Admin: 12/22/19 20:39 Dose: 25 mg Documented by: [id number] Admin: 12/21/19 20:14 Dose: 25 mg Documented by: [id number] Admin: 12/20/19 20:32 Dose: 25 mg Documented by: [id number] Levetiracetam (Keppra) 750 mg PO BID EL Stop: 01/19/20 08:59 Last Admin: 12/23/19 09:01 Dose: 750 mg Documented by: [id number] Admin: 12/22/19 20:39 Dose: 750 mg Documented by: [id number] Admin: 12/22/19 08:48 Dose: 750 mg Documented by: [id number] Admin: 12/21/19 20:14 Dose: 750 mg Documented by: [id number] Admin: 12/21/19 13:28 Dose: Not Given Documented by: [id number] Admin: 12/20/19 20:32 Dose: 750 mg Documented by: [id number] Admin: 12/20/19 09:40 Dose: 750 mg Documented by: [id number] Levothyroxine Sodium (Levothyroxine Sodium) 137 mcg PO DAILYBB [facility] Stop: 01/19/20 06:29 Last Admin: 12/23/19 05:43 Dose: 137 mcg Documented by: [id number] Admin: 12/22/19 05:43 Dose: 137 mcg Documented by: [id number] Admin: 12/21/19 06:02 Dose: 137 mcg Documented by: [id number] Admin: 12/20/19 07:27 Dose: 137 mcg Documented by: [id number] Melatonin (Melatonin) 3 mg PO HS PRN PRN Reason: Sleep Stop: 01/19/20 17:01 Last Admin: 12/21/19 21:53 Dose: 3 mg Documented by: [id number] Admin: 12/20/19 21:18 Dose: 3 mg Documented by: [id number] Ondansetron HCl (Zofran) 4 mg IV Q6H PRN PRN Reason: Nausea Stop: 01/19/20 00:37 Last Admin: 12/22/19 05:43 Dose: 4 mg Documented by: [id number] Admin: 12/21/19 11:41 Dose: 4 mg Documented by: [id number] Sacubitril/Valsartan (Entresto 49/51mg) 1 tab PO BID EL Stop: 01/19/20 08:59 Last Admin: 12/23/19 09:00 Dose: 1 tab Documented by: [id number] Admin: 12/22/19 22:15 Dose: 1 tab Documented by: [id number] Admin: 12/21/19 13:28 Dose: Not Given Documented by: [id number] Admin: 12/20/19 20:33 Dose: 1 tab Documented by: [id number] Admin: 12/20/19 09:40 Dose: 1 tab Documented by: [id number] Discontinued Medications Lorazepam (Ativan) 0.5 mg in 1 mls @ 1 mls/min IV NOW STA Stop: 12/20/19 14:51 Last Admin: 12/20/19 15:21 Dose: 1 mls/min Documented by: [id number] Ropivacaine 150 mg/Bupivacaine HCl 30 ml/Epinephrine HCl 0.15 mg/Ketorolac Tromethamine 30 mg/Dexamethasone 4 mg/ Ketamine HCl 10 mg/ Clonidine HCl 100 mcg/ Sodium Chloride 93.35 mls @ 0 mls/hr INFIL TODAY@0830 EL Stop: 12/21/19 08:31 Last Admin: 12/21/19 08:49 Dose: 93.35 mls/hr Documented by: [id number] Cefazolin Sodium (Ancef 2000mg) 2,000 mg in 15 mls @ 3.75 mls/min IV PREOP ONE Stop: 12/21/19 08:53 Last Admin: 12/21/19 08:51 Dose: 3.75 mls/min Documented by: [id number] Sodium Chloride (Nss 1000ml) 1,000 mls @ 100 mls/hr IV .Q10H [facility] Stop: 12/22/19 06:00 Last Infusion: 12/22/19 00:28 Dose: 0 mls/hr Documented by: [id number] Admin: 12/21/19 11:38 Dose: 100 mls/hr Documented by: [id number] Cefazolin Sodium (Ancef 2000mg) 2,000 mg in 15 mls @ 3.75 mls/min IV Q8H EL; Protocol Stop: 12/22/19 02:03 Last Admin: 12/22/19 03:37 Dose: 3.75 mls/min Documented by: [id number] Admin: 12/21/19 18:53 Dose: 3.75 mls/min Documented by: [id number] Insulin Aspart (Novolog Flexpen) 0 units SC ACHS [facility] Stop: 01/19/20 07:29 Last Admin: 12/20/19 20:34 Dose: 1 units Documented by: [id number] Cosigned by: [id number] Admin: 12/20/19 18:15 Dose: 1 units Documented by: [id number] Cosigned by: [id number] Admin: 12/20/19 13:12 Dose: 1 units Documented by: [id number] Cosigned by: [id number] Admin: 12/20/19 08:56 Dose: 1 units Documented by: [id number] Cosigned by: [id number] Insulin Aspart (Novolog Flexpen) 0 units SC Q6 [facility] Stop: 01/20/20 05:59 Last Admin: 12/21/19 13:41 Dose: Not Given Documented by: [id number] Admin: 12/21/19 05:44 Dose: Not Given Documented by: [id number] Cosigned by: [id number] Miscellaneous (Ortho Joint Anesthetic) Confirm Administered Dose 1 ea .ROUTE .STK-MED ONE Stop: 12/21/19 07:26 Last Admin: 12/21/19 08:49 Dose: Not Given Documented by: [id number] Ondansetron HCl (Zofran) 4 mg IV ONCE PRN PRN Reason: PACU Use Only-Nausea/Vomiting Stop: 12/21/19 15:36 Last Admin: 12/21/19 11:00 Dose: 4 mg Documented by: [id number] Description This is a 21 electrode EEG with a single channel dedicated to limited EKG. The electrodes were placed in accordance with the International 10-20 system. There is a posterior dominant rhythm of 10 Hz which is symmetrically distributed and attenuates with eye opening. There is a normal anterior to posterior organization. Photic stimulation is unremarkable. There is intermittent right parietal theta slowing and sharps. There are no changes suggestive of sleep. Interpretation This is an abnormal awake/drowsy EEG with evidence of potential epileptiform abnormalities localizing to the right parietal region. There are no changes suggestive of active seizures. Further clinical correlation may be needed. [facility] EEG Procedure Codes Indication for Procedure (1) New onset seizure: Neurology Neurology: 53470 EEG include record awake & drowsy
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
[2019-12-23 17:55] LABS: Hematocrit (blood only) 32.3 % (37-47); Hemoglobin 10.2 g/dL (12.0-16.0); Mean Corpuscular Hemoglobin 30.3 pg (25-34); Mean Corpuscular Hgb Conc 31.6 g/dL (32-36); Mean Corpuscular Volume 95.8 fL (80-100); Mean Platelet Volume 9.3 fL (7.4-10.4); Platelet Count 385 K/uL (130-400); RDW Coefficient of Variation 16.2 % (11.5-14.5); RDW Standard Deviation 55.6 fL (36.4-46.3); Red Blood Count 3.37 M/uL (4.2-5.4); White Blood Count 7.34 K/uL (4.8-10.8)
== END 2019-12-23 18:45 | disposition home health service (06) | DRG 982 ==
LOC: ED 18:18 → SUATTDRO 22:50 → 3N 22:50

== ENCOUNTER 2025-04-20 12:52 | Observation (INO) ==
[2025-04-20 13:46] LABS: Hematocrit (blood only) 47.9 % (37.0-47.0); Hemoglobin 15.5 g/dl (12.0-16.0); Immature Granulocytes # (auto) 0.02 K/uL (0.01-0.20); Immature Granulocytes % (auto) 0.3 %; Mean Corpuscular Hemoglobin 30.5 pg (25.0-34.0); Mean Corpuscular Volume 94.3 fL (80.0-100.0); Platelet Count 217 K/uL (130-400); RDW Standard Deviation 45.1 fL (36.4-46.3); Red Blood Count 5.08 M/uL (4.20-5.40); White Blood Count 6.07 K/ul (4.8-10.8)
--- NOTE | 2025-04-20 13:52 | Emergency Department Note ---
Impression & Plan TIA (transient ischemic attack), Chest pain ED Provider Note Diagnosis: Chest pain, TIA Disposition: Admission CHIEF COMPLAINT: Chest pressure HPI: Patient is a 69-year-old female presenting with complaint of chest pressure. Patient states pain is substernal does not radiate. Patient states has been on and off in intensity over the past 1 weeks time. Patient states 1 week ago on Sunday she was watching TV with her significant other and had acute partial painless vision loss that lasted approximately 30 minutes time before resolving. Patient states that she has had many TIAs previously but waits at home and does not come in to get them evaluated. Patient denies any active neurologic symptoms on exam today. Patient called her cardiology team who instructed her to come to the ER for further evaluation today. PAST MEDICAL HISTORY: See Below PAST SURGICAL HISTORY: See Below SOCIAL HISTORY: See Below HOME MEDICATIONS: See Below ALLERGIES: See Below VITALS: See Below PHYSICAL EXAMINATION: GENERAL: Moderate distress EYE EXAM: Normal conjunctiva. OROPHARYNX: Moist mucus membranes. Grossly normal dentition. NECK: Supple, LUNGS: Clear to auscultation. Normal chest wall mechanics. HEART: NSR ABDOMEN: Abdomen soft, non-tender, BACK: No CVA TTP. SKIN: No rashes and no bruising. UPPER EXTREMITIES: Upper extremities are grossly normal LOWER EXTREMITIES: Grossly normal, no edema. NEURO EXAM: A&O x3,, 5 out of 5 muscle strength upper and lower extremities bilaterally, Intact sensation upper and lower extremities bilaterally PSYCH: Cooperative MEDICAL DECISION MAKING: History obtained from: Patient ER Course: Patient is a 69-year-old female presenting with complaint of chest pressure. Patient states the pressure is still present upon arrival in the emergency room substernal does not radiate. Patient states 1 week ago she was watching TV with her and had loss of vision in her left eye for approximately 30 to 40 minutes time. Patient did not seek medical attention at that time. Patient states that she has had multiple TIAs previously but has not seek medical treatment for them but usually is vision loss for only 30 seconds to a minutes time. This was much significantly longer than previous. Patient states that with her chest pain she is experiencing today she called her cardiology team who recommended she come in for further evaluation. Patient's EKG without signs of ischemia today. Patient has 2 negative troponins. Patient neurologically intact on exam. Patient CT of head negative for intracranial hemorrhage. Labs (independently interpreted) are significant for: Troponin negative x 2 Imaging results (independently interpreted): Chest x-ray clear EKG interpretation (independently interpreted): Normal sinus rhythm no ST segment elevation or depression Medications given: Aspirin Consultants: Hospitalist Triage Nursing notes reviewed and agree them. Vital Signs: reviewed and remarkable for: no significant abnormalities Past Med/Surg History Problem List Chest pain (Acute) TIA (transient ischemic attack) (Acute) Prediabetes Carotid arterial disease Vitamin D deficiency Vitamin B12 deficiency HTN (hypertension) Status post reverse arthroplasty of shoulder Osteoarthritis of left hip Non-ischemic cardiomyopathy EF 25% on stress echo 06/17/19. Has chronically refused AICD placement Insomnia (Chronic) Hypothyroidism (Chronic) Chronic systolic congestive heart failure (Chronic) Carotid artery stenosis S/P gastric bypass (~2008) Medical History Urine frequency Neck pain on right side Knee contusion New onset seizure Closed fracture of left proximal humerus Intermittent confusion Anxiety Depression Sleep apnea Hypoglycemia History of anesthesia reaction Anxiety Depression Diabetes type 2, controlled Dyslipidemia Vitamin B12 deficiency Vitamin D deficiency Surgical History History of shoulder replacement History of carotid angioplasty History of tooth extraction History of tubal ligation History of cholecystectomy History of esophagogastroduodenoscopy (EGD) History of cardiac cath Family History Brother Alcoholism Mother Diabetes Father Prostate cancer Sister Breast cancer Slow to wake up after anesthesia Diabetes Denies family history of Ovarian cancer Myocardial infarction Lung cancer Colorectal cancer Hypertension Stroke Social History Smoking Status: Former smoker Tobacco Type: Cigarettes Second Hand Exposure: Yes (spouse smokes outside); Do You Dip or Chew Tobacco: No; Hx Alcohol Use: No (holidays) Hx Substance Use: No Preferred Language: Polish Communication Ability: Effective Visual Impairment: No Limitations Hearing Ability: Normal 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: No Beliefs That Will Affect Care: None marital status: Current Living Situation: Spouse 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 many Children do You have: 4 Feels Safe at Home: Yes Childhood Exposure to Second-Hand Smoke: Yes caffeine: Yes Dental Care, Regularly: No Physical Activity Frequency: Daily Physical Activity Frequency Comment: walk Seatbelt Use: always Sunscreen Use: Yes Assistive Devices: Brace/Splint/Immobilizer and Glasses Allergies Allergies Allergy/AdvReac Type Severity Reaction Status Date / Time lamotrigine [From Lamictal] AdvReac Unknown unsteady, Verified 02/25/25 10:50 shaky levetiracetam [From Keppra] AdvReac Unknown unsteady, Verified 02/25/25 10:50 shaky Opioids - Morphine Analogues AdvReac Unknown Unknown Verified 02/25/25 10:50 surgical ritu Allergy Unknown Uncoded 02/25/25 10:50 Home Meds Previous Rx's Medication Instructions Recorded trazodone 150 mg tablet See Rx Instructions .Route 07/18/24 .COMPLEX PRN insomnia #30 tabs levothyroxine 88 mcg tablet 88 mcg PO .COMPLEX #96 tabs 12/12/24 Ozempic 0.25 mg or 0.5 mg (2 mg/3 0.5 mg (0.736 mL) subcut .COMPLEX 03/26/25 mL) subcutaneous pen injector #3 mL (semaglutide) Results & Data (ED) Vital Signs Vital Signs - 24 hr 04/20/25 12:56 04/20/25 13:30 04/20/25 13:57 Temperature 36.7 C Temperature Source Oral Pulse Rate 97 H 77 96 H Respiratory Rate 20 18 Respiratory Effort / Characteristics Non-Labored Spontaneous Respiratory Depth Normal Blood Pressure 142/82 H 146/89 H Blood Pressure Mean 102 95 Pulse Oximetry 99 97 Oxygen Delivery Method Room Air Room Air Sepsis Recent Fever Within 48 Hours No Sepsis New/Unexplained Change in Mental Status N/A Sepsis Action Taken by Nursing No Action Required 04/20/25 14:00 04/20/25 14:30 04/20/25 15:15 Temperature Temperature Source Pulse Rate 82 84 89 Respiratory Rate 24 19 24 Respiratory Effort / Characteristics Respiratory Depth Blood Pressure 114/80 116/75 94/64 L Blood Pressure Mean 95 98 87 Pulse Oximetry 97 97 97 Oxygen Delivery Method Room Air Room Air Room Air Sepsis Recent Fever Within 48 Hours Sepsis New/Unexplained Change in Mental Status Sepsis Action Taken by Nursing 04/20/25 15:30 04/20/25 15:30 04/20/25 16:31 Temperature Temperature Source Pulse Rate 92 H 99 H Respiratory Rate 22 15 Respiratory Effort / Characteristics Respiratory Depth Blood Pressure 119/83 119/83 114/74 Blood Pressure Mean 98 98 77 Pulse Oximetry 97 96 Oxygen Delivery Method Room Air Room Air Sepsis Recent Fever Within 48 Hours Sepsis New/Unexplained Change in Mental Status Sepsis Action Taken by Nursing Laboratory Data 04/20/25 13:19 04/20/25 13:19 Lab Results 04/20/25 04/20/25 Range/Units 13:19 15:13 WBC 6.07 (4.8-10.8) K/ul RBC 5.08 (4.20-5.40) M/uL Hgb 15.5 (12.0-16.0) g/dl Hct 47.9 H (37.0-47.0) % MCV 94.3 (80.0-100.0) fL MCH 30.5 (25.0-34.0) pg MCHC 32.4 (32.0-36.0) g/dL RDW Std Deviation 45.1 (36.4-46.3) fL RDW Coeff of Иван 13.1 (11.5-14.5) % Plt Count 217 (130-400) K/uL MPV 9.9 (9.4-12.4) fL Immature Gran % (Auto) 0.3 % Neut % (Auto) 53.0 % Lymph % (Auto) 36.2 % Mobile % (Auto) 8.4 % Eos % (Auto) 1.6 % Baso % (Auto) 0.5 % Neut # (Auto) 3.21 (1.40-6.50) K/uL Lymph # (Auto) 2.20 (1.20-3.40) K/uL Mobile # (Auto) 0.51 (0.11-0.59) K/uL Eos # (Auto) 0.10 (0.00-0.50) K/uL Baso # (Auto) 0.03 (0.00-0.20) K/uL Immature Gran # (Auto) 0.02 (0.01-0.20) K/uL PT 10.6 (9.0-12.0) Seconds INR 1.0 (0.9-1.1) APTT 30 (21-31) Seconds PTT Ratio 1.1 Sodium 137 (136-145) mmol/L Potassium 4.0 (3.5-5.1) mmol/L Chloride 102 (98-107) mmol/L Carbon Dioxide 27 (21-32) mmol/L Anion Gap 8 (3-11) BUN 10 (6-23) mg/dl Creatinine 1.03 (0.6-1.2) mg/dl Est Cr Clr Drug Dosing 48.7 ml/min eGFR 58.13 BUN/Creatinine Ratio 9.7 L (10-20) Glucose 127 H (70-99(Fasting)) mg/dl Calcium 9.6 (8.6-10.3) mg/dl Total Bilirubin 1.4 H (0.2-1.0) mg/dl AST 17 (13-39) U/L ALT 9 (7-52) U/L Alkaline Phosphatase 100 (34-104) U/L Troponin I High Sens 9.1 9.1 (0-14) pg/ml Total Protein 7.8 (6.0-8.3) gm/dl Albumin 4.1 (3.4-5.0) gm/dl Globulin 3.7 (2.5-4.0) gm/dl Albumin/Globulin Ratio 1.1 (0.9-2) Imaging Data Radiologist's Impression: Chest X-Ray 04/20/25 13:01 XR chest 1V portable CLINICAL HISTORY: Chest pain, nonspecific COMPARISON STUDY: 12/19/2019 FINDINGS: Stable mild cardiomegaly without pulmonary vascular congestion. No consolidation or pleural effusion. No pneumothorax. IMPRESSION: No acute findings. ACT 112: Negative or not required by law. Electronically signed by: Surendra Barroso M.D. 04/20/2025 2:[address] 04/20/25 13:34 CT head/brain wo con CLINICAL HISTORY: 69 years-old Female with TIA, episode of vision loss 6 days ago. Acute stroke like symptoms TECHNIQUE: Multiple axial CT images of the head were obtained without contrast. A dose lowering technique was utilized adhering to the principles of ALARA. CT DOSE: 625.8 mGy.cm COMPARISON: 12/19/2019 FINDINGS: No acute intracranial hemorrhage, midline shift, intracranial mass, hydrocephalus, territorial ischemia or abnormal extra-axial collection. Involutional changes. The calvarium is intact. The paranasal sinuses, mastoid air cells, and middle ear cavities are clear. IMPRESSION: No acute intracranial abnormality. ACT 112: Negative or not required by law. The above report was generated using voice recognition software. It may contain grammatical, syntax or spelling errors. Electronically signed by: Tripp Gabriel M.D. 04/20/2025 2:49 PM Discharge Plan Visit Data Chief Complaint: Cardiac Assessment Stated Complaint: DR JOHNSON SENT CARDIO ED Provider: Dejon Mascorro Discharge Problem: TIA (transient ischemic attack), Chest pain Condition: Serious Forms Stand Alone Forms: [employer] [facility] Prescriptions Prescriptions: No Action trazodone 150 mg tablet See Rx Instructions .ROUTE .COMPLEX PRN (Reason: insomnia) Qty: 30 0RF Dose Instruction: take 1 tablet by mouth once daily Rx Instructions: take 1 tablet by mouth once daily PRN; levothyroxine 88 mcg tablet 88 mcg PO .COMPLEX Qty: 96 3RF Rx Instructions: 88 mcg PO Take 1 tablet 6 days a week and 2 tablets 1 day a week; Ozempic 0.25 mg or 0.5 mg (2 mg/3 mL) pen injector 0.5 mg subcut .COMPLEX Qty: 3 1RF Rx Instructions: 0.5 mg subcutaneously once weekly; Referrals Referrals: ProNick MD [Primary Care Provider] -
[2025-04-20 14:04] LABS: Alanine Aminotransferase 9.0 U/L (7-52); Albumin Globulin Ratio 1.1 (0.9-2); Albumin Level 4.1 gm/dl (3.4-5.0); Alkaline Phosphatase 100.0 U/L (34-104); Anion Gap 8.0 (3-11); Bilirubin,Total 1.4 mg/dl (0.2-1.0); Blood Urea Nitrogen 10.0 mg/dl (6-23); Calcium 9.6 mg/dl (8.6-10.3); Carbon Dioxide 27.0 mmol/L (21-32); Chloride 102.0 mmol/L (98-107); Creatinine Clr Calc Pharmacy 48.7 ml/min; Globulin 3.7 gm/dl (2.5-4.0); Glucose 127.0 mg/dl (70-99(Fasting)); Potassium 4.0 mmol/L (3.5-5.1); Sodium 137.0 mmol/L (136-145); Total Protein 7.8 gm/dl (6.0-8.3)
--- NOTE | 2025-04-20 14:06 | XRay Report ---
XR chest 1V portable CLINICAL HISTORY: Chest pain, nonspecific COMPARISON STUDY: 12/19/2019 FINDINGS: Stable mild cardiomegaly without pulmonary vascular congestion. No consolidation or pleural effusion. No pneumothorax. IMPRESSION: No acute findings. ACT 112: Negative or not required by law. Electronically signed by: Surendra Barroso M.D. 04/20/2025 2:05 PM
[2025-04-20 14:11] LABS: INR 1.0 (0.9-1.1); Partial Thromboplastin Time 30 Seconds (21-31); Prothrombin Time 10.6 Seconds (9.0-12.0)
--- NOTE | 2025-04-20 14:51 | CT Scan Report ---
CT head/brain wo con CLINICAL HISTORY: 69 years-old Female with TIA, episode of vision loss 6 days ago. Acute stroke like symptoms TECHNIQUE: Multiple axial CT images of the head were obtained without contrast. A dose lowering tech nique was utilized adhering to the principles of ALARA. CT DOSE: 625.8 mGy.cm COMPARISON: 12/19/2019 FINDINGS: No acute intracranial hemorrhage, midline shift, intracranial mass, hydrocephalus, territorial ischem ia or abnormal extra-axial collection. Involutional changes. The calvarium is intact. The paranasal sinuses, mastoid air cells, and middle ear cavities are clear . IMPRESSION: No acute intracranial abnormality. ACT 112: Negative or not required by law. The above report was generated using voice recognition software. It may contain grammatical, syntax o r spelling errors. Electronically signed by: Tripp Gabriel M.D. 04/20/2025 2:49 PM
--- NOTE | 2025-04-20 17:09 | Electrocardiogram Report ---
Test Reason : Blood Pressure : */* mmHG Vent. Rate : 93 BPM Atrial Rate : 93 BPM P-R Int : 178 ms QRS Dur : 108 ms QT Int : 378 ms P-R-T Axes : 71 -11 112 degrees QTcB Int : 469 ms Normal sinus rhythm Left ventricular hypertrophy with repolarization abnormality Abnormal ECG Confirmed by Reg Mello ([id number]) on 04/20/2025 5:09:06 PM Referred By: Confirmed By: Reg Mello
--- NOTE | 2025-04-20 17:32 | History & Physical Report ---
Date of Service April 20, 2025 Assessment & Plan (1) Chest pain: (2) TIA (transient ischemic attack): (3) Carotid artery stenosis: (4) S/P gastric bypass: (5) Diabetes type 2, controlled: (6) Hypothyroidism: Plan Patient is a 69-year-old female with past medical history of nonischemic cardiomyopathy, diabetes type 2, obesity status post gastric bypass, history of multiple TIAs/CVA, anxiety, depression who was admitted for further workup after experiencing chest pressure and separate episode of left-sided vision loss that resolved after 30-40 minutes. ## Chest pressure/tightness ## History of nonischemic cardiomyopathy Patient follows with outpatient cardiology, who had advised her to go to the emergency department after she called them stating that she had been experiencing substernal chest tightness/pressure. EKG in ED w/o significant ST segment changes and in NSR; Troponin negative x2 Have been advised by cardiology to take aspirin 81 mg daily as well as med tx given history of nonischemic cardiomyopathy, however, patient had deferred. Had also been deferring placement of AICD. Patient is very active and exercises pretty frequently; diet at home is low in salt and very high in fruits and vegetables and home-cooked lean meats. Admit to Med/Tele for cardiac monitoring. Last echo as detailed above. Will order repeat TTE. Given current stressors, it is also possible that anxiety may between a role ## Left sided vision loss ## History of right CEA on 2019 Patient past medical history and described symptoms raise concern for possible TIA/amaurosis fugax Has not had recurrence since then and no new neurological deficits History of carotid artery stenosis with noted restenosis of right ICA could be predisposing patient to patient Will order repeat bilateral carotid Doppler Will consider medication management to decrease risk of recurrence after discharge. ## Hypothyroidism Continue home levothyroxine ## Hyperlipidemia Currently diet controlled ## Type 2 diabetes Last hemoglobin A1c from 02/18/25 was 6.5% On Ozempic at home; held during admission SSI Dispo: Med/Tele VTE ppx: Low risk; ambulation Code Status: DNR/DNI History of Present Illness Chief Complaint: Chest pressure Primary Care Provider: Nick Murray MD Patient is a 69-year-old female with past medical history of nonischemic cardiomyopathy, diabetes type 2, obesity status post gastric bypass, history of multiple TIAs/CVA, anxiety, depression who came to the emergency department for recommendation of her neuropsychology medical consultant office due to intermittent pressure sensation over the center of her chest. Patient states that she has been having intermittent chest pressure/tightness over the last week or so that comes and goes without any particular triggers that she can think of. Patient is very active and she walks a lot but denies having any reproduction of symptoms with ambulation save for when she is walking up a very steep hill at a relatively f ast pace. Denies having any associated shortness of breath, diaphoresis, nausea/vomiting, abdominal pain, weakness, lightheadedness, syncope, palpitations, or any other systemic symptoms. Patient believes that current symptoms may be related to stress/anxiety since over the last 2 months she has unfortunately had multiple deaths in the family. As a separate note, patient also states that mid last week, she was sitting and watching TV when all of a sudden the vision of her left eye suddenly went black. This persisted for approximately 35-40 minutes and then resolved spontaneously. Patient has had similar episodes in the past but they tended to resolve in a few seconds and never lasted for this long. He has had multiple TIAs in the past, and also has history of carotid artery stenosis with right sided CEA on 2019. Labs/Imaging: CBC without leukocytosis, hemoglobin of 15.5, and platelets of 217. CMP without significant electrolyte abnormalities, creatinine of 1.03, blood sugar of 127. Total bili 1.4 but otherwise LFTs unremarkable. Chest x- ray without acute findings. Head CT without acute changes. Most recent TTE from 2019 showing left ventricular ejection fraction of 25-30% with moderate to severe global hypokinesis of left ventricle. Most recent carotid Doppler from 02/18/2024 showing right sided ICA restenosis, > 50% stenosis of right ECA, <50% stenosis of LT ICA w/ trivial flow suggestive of proximal stenosis and signs of left subclavian steal. Medical History: [Reviewed] Medications: [Reviewed] Surgical History: [Reviewed] Family history: [Reviewed] Allergies: [Reviewed] Social History: [Reviewed] Code Status: DNR/DNI Allergies Allergy/AdvReac Type Severity Reaction Status Date / Time lamotrigine [From Lamictal] AdvReac Unknown unsteady, Verified 02/25/25 10:50 shaky levetiracetam [From Keppra] AdvReac Unknown unsteady, Verified 02/25/25 10:50 shaky Opioids - Morphine Analogues AdvReac Unknown Unknown Verified 02/25/25 10:50 surgical ritu Allergy Unknown Uncoded 02/25/25 10:50 Home Medications Medication Instructions Recorded Confirmed Type Ozempic 0.25 mg or 0.5 mg (2 mg/3 0.5 mg (0.736 mL) subcut .COMPLEX 03/26/25 04/20/25 Rx mL) subcutaneous pen injector #3 mL (semaglutide) levothyroxine 88 mcg tablet 88 mcg PO UD 04/20/25 04/20/25 History trazodone 150 mg tablet 0 mg PO DAILY PRN insomnia 04/20/25 04/20/25 History Past Med/Surg History Problem List Chest pain (Acute) TIA (transient ischemic attack) (Acute) Prediabetes Carotid arterial disease Vitamin D deficiency Vitamin B12 deficiency HTN (hypertension) Status post reverse arthroplasty of shoulder Osteoarthritis of left hip Non-ischemic cardiomyopathy EF 25% on stress echo 06/17/19. Has chronically refused AICD placement Insomnia (Chronic) Hypothyroidism (Chronic) Chronic systolic congestive heart failure (Chronic) Carotid artery stenosis S/P gastric bypass (~2008) Medical History Urine frequency Neck pain on right side Knee contusion New onset seizure Closed fracture of left proximal humerus Intermittent confusion Anxiety Depression Sleep apnea Hypoglycemia History of anesthesia reaction Anxiety Depression Diabetes type 2, controlled Dyslipidemia Vitamin B12 deficiency Vitamin D deficiency Surgical History History of shoulder replacement History of carotid angioplasty History of tooth extraction History of tubal ligation History of cholecystectomy History of esophagogastroduodenoscopy (EGD) History of cardiac cath Family History Brother Alcoholism Mother Diabetes Father Prostate cancer Sister Breast cancer Slow to wake up after anesthesia Diabetes Denies family history of Ovarian cancer Myocardial infarction Lung cancer Colorectal cancer Hypertension Stroke Social History Smoking Status: Former smoker Tobacco Type: Cigarettes Second Hand Exposure: Yes (spouse smokes outside); Do You Dip or Chew Tobacco: No; Hx Alcohol Use: No (holidays) Hx Substance Use: No Preferred Language: South African Communication Ability: Effective Visual Impairment: No Limitations Hearing Ability: Normal Nursing Coordinator Required: No Beliefs That Will Affect Care: None marital status: Current Living Situation: Spouse 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 many Children do You have: 4 Feels Safe at Home: Yes Childhood Exposure to Second-Hand Smoke: Yes caffeine: Yes Dental Care, Regularly: No Physical Activity Frequency: Daily Physical Activity Frequency Comment: walk Seatbelt Use: always Sunscreen Use: Yes Assistive Devices: Brace/Splint/Immobilizer and Glasses Review of Systems Review of Systems: As per HPI Physical Exam Physical Exam: GENERAL: Awake alert and oriented in all spheres, calm, afebrile, no acute d istress HEAD: Atraumatic, normocephalic EYES: EOM intact, PERRL, normal conjunctiva THROAT: Normal to visual inspection CHEST: Symmetric chest expansions with respirations, no reproduction of pain on palpation of anterior chest wall CARDIO: Regular rate and rhythm, no rubs murmurs or gallops appreciated PULMONARY: Clear to auscultation bilaterally, normal respiratory effort, no respiratory distress, breathing comfortably on room air GI: Soft, nontender, nondistended EXTREMITIES: Calf tenderness in bilateral lower extremities NEURO: Normal speech, 5/5 strength in bilateral upper and lower extremities, no focal deficits appreciated Results & Data Results & Data Vital Signs (Past 12 Hours) Vital Signs Temp Pulse Resp BP Pulse Ox O2 Del Method 04/20/25 16:31 99 H 15 114/74 96 Room Air 04/20/25 15:30 92 H 22 119/83 97 Room Air 04/20/25 15:30 119/83 04/20/25 15:15 89 24 94/64 L 97 Room Air 04/20/25 14:30 84 19 116/75 97 Room Air 04/20/25 14:00 82 24 114/80 97 Room Air 04/20/25 13:57 96 H 04/20/25 13:30 77 18 146/89 H 97 Room Air 04/20/25 12:56 36.7 C 97 H 20 142/82 H 99 Room Air Supervising Physician Co-Signing Physician Notes I personally examined the patient and verified lopez points of history and exam, discussed case, and agree with decision making and plan documented by Dr. Maximo Oates. Patient is a 69-year-old female with past medical history of diabetes, nonischemic cardiomyopathy, CHF, hypothyroidism, carotid artery stenosis s/p right CEA, history of gastric bypass and resultant deficiencies, hyperlipidemia, CVA/TIA, seizure, and anxiety/depression presenting with nonexertional chest pain and episode of left-sided vision loss that has resolved. Agree with evaluation to rule out ACS, troponins negative, will obtain echo and carotid ultrasound. Negative head CT today, consider MRI brain. On exam patient appears comfortable, non diaphoretic, conjunctiva clear, mucosa moist, CN II-XII intact, non-labored breathing, lungs clear to auscultation bilaterally, no rales/rhonchi/wheezing, heart with regular rate and rhythm, no murmur appreciated, bowel sounds present, lower extremities without edema. Monitor on telemetry. Resident Activity Tracking Resident Involvement: Resident Care Provided Care Provided: Adult Hospital Medicine (3) Carotid artery stenosis Laterality: unspecified laterality Qualified Code(s): I65.29 - Occlusion and stenosis of unspecified carotid artery (6) Hypothyroidism Hypothyroidism type: unspecified Qualified Code(s): E03.9 - Hypothyroidism, unspecified
[2025-04-20] MEDS ORDERED: MELATONIN 3 MG TAB PO PRN (22:11)
[2025-04-20] MEDS ORDERED: ONDANSETRON INJ 2 MG/ML 2 ML VIAL IV PRN (22:11)
[2025-04-20] MEDS ORDERED: GLUCOSE 10 TAB/TUBE PO PRN (22:11)
[2025-04-20] MEDS ORDERED: ACETAMINOPHEN 325 MG TAB PO PRN (22:11)
[2025-04-20] MEDS ORDERED: DEXTROSE 50% 50 ML SYRINGE IV PRN (22:11)
[2025-04-20] MEDS ORDERED: POLYETHYLENE (MIRALAX) 17 GM PACK PO PRN (22:11)
[2025-04-20] MEDS ORDERED: GLUCAGON FOR INJ 1 MG VIAL SQ PRN (22:11)
[2025-04-20] MEDS ORDERED: GLUCOSE 40% GEL 15 GM TUBE PO PRN (22:11)
[2025-04-20] MEDS ORDERED: CARBOHYDRATES FOR HYPOGLYCEMIA PO PRN (22:11)
[2025-04-20] MEDS: INSULIN ASPART PER UNIT CHARGE SC SCH (22:38)
[2025-04-21] MEDS: LEVOTHYROXINE SODIUM 88 MCG TABLET PO SCH (06:02)
[2025-04-21 08:06] VITALS: RESP 18
[2025-04-21 09:39] LABS: Hematocrit (blood only) 45.4 % (37.0-47.0); Hemoglobin 14.7 g/dl (12.0-16.0); Immature Granulocytes # (auto) 0.01 K/uL (0.01-0.20); Immature Granulocytes % (auto) 0.2 %; Mean Corpuscular Hemoglobin 30.1 pg (25.0-34.0); Mean Corpuscular Volume 92.8 fL (80.0-100.0); Platelet Count 216 K/uL (130-400); RDW Standard Deviation 44.6 fL (36.4-46.3); Red Blood Count 4.89 M/uL (4.20-5.40); White Blood Count 5.26 K/ul (4.8-10.8)
[2025-04-21 09:53] LABS: Anion Gap 8.0 (3-11); Blood Urea Nitrogen 12.0 mg/dl (6-23); Calcium 9.3 mg/dl (8.6-10.3); Carbon Dioxide 25.0 mmol/L (21-32); Chloride 106.0 mmol/L (98-107); Creatinine Clr Calc Pharmacy 54.0 ml/min; Glucose 97.0 mg/dl (70-99(Fasting)); Potassium 4.1 mmol/L (3.5-5.1); Sodium 139.0 mmol/L (136-145)
--- NOTE | 2025-04-21 10:37 | XCELERA ---
[id number]
--- NOTE | 2025-04-21 10:55 | Ultrasound Report ---
CAROTID ARTERY ULTRASOUND CLINICAL HISTORY: transient (L) vision loss; hx CEA COMPARISON STUDY: Carotid ultrasound June 07, 2021. TECHNIQUE: Real-time, grayscale, and color Doppler sonography of the carotid and vertebral arteries w as performed. Images were viewed in the transverse and longitudinal planes. FINDINGS: There is mild to moderate atherosclerotic plaque. Velocity measurements are listed below. COMMON CAROTID PEAK SYSTOLIC VELOCITY (CM/S): RIGHT 72 LEFT 81 ICA PEAK SYSTOLIC VELOCITY (CM/S): RIGHT 106 LEFT 81 Systolic ratios between the internal to common carotid arteries are normal. Antegrade flow within the right vertebral is noted. Retrograde flow within the left vertebral artery is again noted. There is monophasic flow within the left subclavian artery without elevated velocity. IMPRESSION: 1. No evidence for a hemodynamically significant stenosis. 2. Status post right carotid endarterectomy. 3. Redemonstration of reversal of flow within the left vertebral artery. ACT 112: Negative or not required by law. Electronically signed by: Zaki Rankin M.D. 04/21/2025 10:54 AM
[2025-04-21 11:20] VITALS: BP 99/67; TEMP 98.3; O2SAT 94
--- NOTE | 2025-04-21 12:53 | Discharge Summary ---
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 Patient states that she has been having intermittent chest pressure/tightness over the last week or so that comes and goes without any particular triggers that she can think of. Patient is very active and she walks a lot but denies having any reproduction of symptoms with ambulation save for when she is walking up a very steep hill at a relatively fast pace. Denies having any associated shortness of breath, diaphoresis, nausea/vomiting, abdominal pain, weakness, lightheadedness, syncope, palpitations, or any other systemic symptoms. Patient believes that current symptoms may be related to stress/anxiety since over the last 2 months she has unfortunately had multiple deaths in the family. As a separate note, patient also states that mid last week, she was sitting and watching TV when all of a sudden the vision of her left eye suddenly went black. This persisted for approximately 35-40 minutes and then resolved spontaneously. Patient has had similar episodes in the past but they tended to resolve in a few seconds and never lasted for this long. He has had multiple TIAs in the past, and also has history of carotid artery stenosis with right sided CEA on 2019. Labs/Imaging: CBC without leukocytosis, hemoglobin of 15.5, and platelets of 217. CMP without significant electrolyte abnormalities, creatinine of 1.03, blood sugar of 127. Total bili 1.4 but otherwise LFTs unremarkable. Chest x- ray without acute findings. Head CT without acute changes. Most recent TTE from 2019 showing left ventricular ejection fraction of 25-30% with moderate to severe global hypokinesis of left ventricle. Most recent carotid Doppler from 02/18/2024 showing right sided ICA restenosis, > 50% stenosis of right ECA, <50% stenosis of LT ICA w/ trivial flow suggestive of proximal stenosis and signs of left subclavian steal. Medical History: [Reviewed] Medications: [Reviewed] Surgical History: [Reviewed] Family history: [Reviewed] Allergies: [Reviewed] Social History: [Reviewed] Code Status: DNR/DNI Admission Exam Per Admitting Provider GENERAL: Awake alert and oriented in all spheres, calm, afebrile, no acute distress HEAD: Atraumatic, normocephalic EYES: EOM intact, PERRL, normal conjunctiva THROAT: Normal to visual inspection CHEST: Symmetric chest expansions with respirations, no reproduction of pain on palpation of anterior chest wall CARDIO: Regular rate and rhythm, no rubs murmurs or gallops appreciated PULMONARY: Clear to auscultation bilaterally, normal respiratory effort, no respiratory distress, breathing comfortably on room air GI: Soft, nontender, nondistended EXTREMITIES: Calf tenderness in bilateral lower extremities NEURO: Normal speech, 5/5 strength in bilateral upper and lower extremities, no focal deficits appreciated Principal Diagnosis Chest pressure/Heaviness with episode of left sided vision loss Discharge Exam Constitutional WD/WN, vitals as above no acute distress Eyes + anicteric sclerae and PERRL; no nystagmus ENMT external ear and nose normal, oropharynx normal Neck trachea midline, no thyromegaly Respiratory normal respiratory effort, lungs clear to auscultation Cardiovascular RRR, no murmur, no edema Gastrointestinal (Abdomen) normal bowel sounds, soft, nontender, no hepatosplenomegaly Skin no rashes, warm and dry Neurologic patellar DTR's 2+ bilat, sensation intact Psychiatric A+Ox3, euthymic affect Lymphatic no cervical or axillary lymphadenopathy Discharge Data Allergies Allergy/AdvReac Type Severity Reaction Status Date / Time lamotrigine [From Lamictal] AdvReac Unknown unsteady, Verified 02/25/25 10:50 shaky levetiracetam [From Keppra] AdvReac Unknown unsteady, Verified 02/25/25 10:50 shaky Opioids - Morphine Analogues AdvReac Unknown Unknown Verified 02/25/25 10:50 surgical ritu Allergy Unknown Uncoded 02/25/25 10:50 Consultations 04/20/25 16:00 ED Decision to Admit Stat Ordered Studies 04/20/25 13:34 CT head/brain wo con Stat 04/21/25 US carotid doppler BI Routine Hospital Course (1) Chest pain: (2) TIA (transient ischemic attack): (3) Carotid artery stenosis: (4) S/P gastric bypass: (5) Diabetes type 2, controlled: (6) Hypothyroidism: Plan Patient is a 69-year-old female with past medical history of nonischemic cardiomyopathy, diabetes type 2, obesity status post gastric bypass, history of multiple TIAs/CVA, anxiety, depression who was admitted for further workup after experiencing chest pressure and separate episode of left-sided vision loss that resolved after 30-40 minutes. ## Chest pressure/tightness ## History of nonischemic cardiomyopathy Patient follows with outpatient cardiology, who had advised her to go to the emergency department after she called them stating that she had been experiencing substernal chest tightness/pressure. EKG in ED w/o significant ST segment changes and in NSR; Troponin negative x2 Have been advised by cardiology to take aspirin 81 mg daily as well as med tx given history of nonischemic cardiomyopathy, however, patient had deferred. Had also been deferring placement of AICD. Patient is very active and exercises pretty frequently; diet at home is low in salt and very high in fruits and vegetables and home-cooked lean meats. Admit to Med/Tele for cardiac monitoring. Last echo as detailed above. Will order repeat TTE. Given current stressors, it is also possible that anxiety may between a role ## Left sided vision loss ## History of right CEA on 2019 Patient past medical history and described symptoms raise concern for possible TIA/amaurosis fugax Has not had recurrence since then and no new neurological deficits History of carotid artery stenosis with noted restenosis of right ICA could be predisposing patient to patient Will order repeat bilateral carotid Doppler Will consider medication management to decrease risk of recurrence after discharge. ## Hypothyroidism Continue home levothyroxine ## Hyperlipidemia Currently diet controlled ## Type 2 diabetes Last hemoglobin A1c from 02/18/25 was 6.5% Continue Ozempic at home; held during admission Total Time Total Time Spent Total Time Spent (In Minutes): See attending attesation Discharge Plan Discharge Items Patient Disposition: Home - Self-Care Reason For Visit: CHEST PRESSURE Discharge Diagnosis: Chest pressure/tightness Condition on Discharge: Fair Activity: Per Instructions section Non-emergency contact: Primary Care Provider and Assistant Professor Of Physics Call non-emergency contact if: your symptoms worsen and your pain is unusual for you Follow-up/Referrals: Nick Murray MD [Primary Care Provider] - 05/01/25 11:00 am Diet: Regular Addtl Attending Provider Instructions: You were admitted to [facility] because of a chest tightness or pressure and short duration of left sided vision loss. With regard to your chest pressure, we did some test to see the rhythm of your heart and the ultrasound of your heart as well which didn't show signs which were concerning for your acute visit and looking at your condition which was getting better, we deemed safe to discharge you. You will continue your home medications as noted below. Please make sure you follow up with your PCP and rack puncher to make sure your heart condition is stable.You have your rack puncher appointment scheduled for tomorrow. Thank you for choosing [facility] as your healthcare provider Pending Studies at Discharge: No Stand-Alone Forms: My [facility], Work/School Release, Smoking Cessation Medications and DC Order Prescriptions: Continued Ozempic 0.25 mg or 0.5 mg (2 mg/3 mL) pen injector 0.5 mg subcut .COMPLEX Qty: 3 1RF Rx Instructions: 0.5 mg subcutaneously once weekly; levothyroxine 88 mcg tablet 88 mcg PO UD Rx Instructions: 88 mcg PO Take 1 tablet 6 days a week and 2 tablets 1 day a week; trazodone 150 mg tablet 0 mg PO DAILY PRN (Reason: insomnia) Rx Instructions: take 1 tablet by mouth once daily PRN; Discharge Orders: Discharge Order (Routine); Ordered 04/21/25 Ordered By: Tosin Melendez Admission Data Admit Date/Time: 04/20/25 17:24 Attending Provider: Jenna Lara Admit Provider: Farzaneh Marsh Primary Care Provider: Nick Murray Other Providers: Quinn Quiros Other Interventions: Discharge Summary Assessment (RN) Last Done: 04/21/25 15:29 Supervising Physician Co-Signing Physician Notes I personally examined the patient and verified lopez points of history and exam, discussed case, and agree with decision making and plan documented by Dr. Maximo Oates. Patient is a 69-year-old female with past medical history pertinent for T2DM, nonischemic cardiomyopathy, CHF, hypothyroidism, carotid artery stenosis s/p right CEA, history of gastric bypass and resultant deficiencies, hyperlipidemia, CVA/TIA, seizure, and anxiety/depression presenting with nonexertional chest pain and episode of left-sided vision loss that has resolved. Head CT performed with no acute intracranial abnormality. Carotid duplex performed with no evidence of significant stenosis. No acute ST segment on ECG, no abnormalities appreciated on telemetry, negative troponin. Echocardiogram performed to reveal LVEF 25 to 30% with progressive mitral regurgitation, noted moderate global hypokinesis. Long conversation with juli davis about risk reduction in terms of history of CVA/TIA and importance of consideration of aspirin and statin therapy. Patient was discharged with scheduled cardiology appointment on 04/22/2025 that was unfortunately canceled. Patient requesting assistance establishing with [facility] cardiology, will notify case management. Letter provided to patient as she missed her cruise and would like to submit to cruise insurance, she was meant to board on 04/19/2025. Advised patient that she should follow-up with cardiology as recommended as well as her PCP. Patient and her understanding of plan. Total attending time 48 minutes Resident Activity Tracking Resident Involvement: Resident Care Provided Care Provided: Adult Hospital Medicine
[2025-04-21 16:59] VITALS: PULSE 96
[2025-04-26] MEDS ORDERED: LEVOTHYROXINE SODIUM 88 MCG TABLET PO SCH (06:30)
== END 2025-04-21 17:22 | disposition home or self-care (01) ==
LOC: ED 12:52 → 2N 12:52